=== PATIENT | male | born 1980 | race Hispanic/Latino ===

== ENCOUNTER 2023-08-28 23:46 | Emergency (ER) | payer OTHER ==
[~2023-08-28] VITALS: Ht 165.1 cm; Wt 104.3 kg
[2023-08-28 23:47] VITALS: BP 144/93; PULSE 98; RESP 20
[2023-08-29 00:32] LABS: APPEARANCE,URINE CLEAR (CLEAR); BILIRUBIN,URINE NEGATIVE (NEGATIVE); COLOR,URINE LIGHT-YELLOW (YELLOW); GLUCOSE, URINE (UA) >=1000 mg/dL (NEGATIVE); KETONES,URINE NEGATIVE (NEGATIVE); LEUKOCYTE ESTERASE ,URINE 250 Leu/uL (NEGATIVE); NITRATE,URINE NEGATIVE (NEGATIVE); OCCULT BLOOD,URINE LARGE (NEGATIVE); PH,URINE 5.5 (5.0-8.0); PROTEIN,URINE NEGATIVE (NEGATIVE); UROBILINOGEN,URINE 0.2 mg/dL (0.2-1.0)
[2023-08-29 00:34] LABS: ADD UA MICROSCOPIC YES
[2023-08-29 00:56] LABS: BACTERIA,URINE None Seen /HPF (None Seen); SQUAMOUS EPITHELIAL CELL,UR Rare /HPF (0-2)
[2023-08-29 00:57] LABS: RBC,URINE 26-50 /HPF (0-1)
[2023-08-29 01:08] LABS: BASOPHILS # (AUTO) 0.07 K/uL (0.00-0.20); BASOPHILS % (AUTO) 0.6 % (0.0-5.0); EOSINOPHILS # (AUTO) 0.37 K/uL (0.00-0.70); EOSINOPHILS % (AUTO) 3.2 % (0.0-8.0); HEMATOCRIT 43.8 % (42-54); IMMATURE GRANULOCYTE ABSOLUTE 0.04 K/uL (0-1); LYMPHOCYTES # (AUTO) 2.3 K/uL (1.0-4.8); LYMPHOCYTES % (AUTO) 19.7 % (21.0-51.0); MEAN CORPUSCULAR HEMOGLOBIN 30.1 pg (27.0-33.0); MEAN CORPUSCULAR HGB CONC 32.9 g/dL (32.0-36.0); MEAN CORPUSCULAR VOLUME 91.4 fL (79-99); MONOCYTES # (AUTO) 1.1 K/uL (0.1-1.0); MONOCYTES % (AUTO) 9.2 % (3.0-13.0); NEUTROPHILS # (AUTO) 7.7 K/uL (1.8-7.7); PLATELET COUNT (AUTO) 169 K/uL (130-400); RED BLOOD CELL COUNT(AUTO) 4.79 MIL/uL (4.50-6.20); RED CELL DISTRIBUTION WIDTH 13.7 % (11.0-15.5); WHITE BLOOD COUNT (AUTO) 11.5 K/uL (4.8-10.8)
[2023-08-29 01:10] LABS: CREATININE 0.7 mg/dL (0.5-1.5)
[2023-08-29 01:14] LABS: ALBUMIN 3.6 g/dL (3.5-5.0); BILIRUBIN,TOTAL 0.5 mg/dL (0.2-1.0); TOTAL PROTEIN, SERUM 7.5 g/dL (6.0-8.3)
[2023-08-29] MEDS ORDERED: AZITHROMYCIN 250 MG TABLET PO ONE (02:00)
[2023-08-29] MEDS ORDERED: CEFTRIAXONE 1G VIAL IVPB ONE (02:00)
[2023-08-29] MEDS ORDERED: IBUP-1493 PO (02:52)
[2023-08-29] MEDS ORDERED: LEVO750T68 PO (02:52)
== END 2023-08-29 03:05 | disposition home or self-care (01) ==
LOC: EDH 23:46
DX: N45.3 Epididymo-orchitis (principal); I10 Essential (primary) hypertension; E11.9 Type 2 diabetes mellitus without complications; Z98.890 Other specified postprocedural states
CPT/HCPCS: 99285; 80053; 85025; 87088; 83605; 81001; 36415; 76870; 96365; J0696

== ENCOUNTER 2025-04-12 12:55 | Inpatient (IN) | payer OTHER ==
[~2025-04-12] VITALS: Ht 165.1 cm; Wt 111.1 kg
[~2025-04-12 12:55] MED LIST: IBUP-1493 PO; LEVO750T68 PO
--- NOTE | 2025-04-12 13:26 | ERN ---
ED Note History of Present Illness Stated Complaint: REFERRAL FROM PHYSICIAN FOR PERIRECTAL ABCESS Chief Complaint: Abscess Time Seen by MD: 12:56 Time Seen by Midlevel: 12:57 Dictation: 44-year-old male presents to the emergency department due to reported having a perirectal abscess that began since 2 weeks ago. He states that on day 1 he did have a temperature 102 F but that has since resolved. At this time, he rates his level of discomfort as a 6/10. Currently, he denies having any chills. Patient states that the level of the discomfort has improved after started to drain. However, he states that he is concerned due to having a history of diabetes. At this time, he is not any current or antibiotics. Upon initial evaluation, the patient presents hourly uncomfortable looking. Allergies: Coded Allergies: No Known Allergies (Unverified Allergy, Unknown, 08/28/23) Emergency Care PLAYBACK OPERATOR: None Home Meds Active Scripts Levofloxacin (Levaquin 750Mg Tabs) 750 Mg Tablet, 750 MG PO DAILY, #10 TAB Prov:AUTUMN LEGER MD 08/29/23 Ibuprofen (Motrin/Advil) 800 Mg Tab, 800 MG PO TID, #30 TAB Prov:AUTUMN LEGER MD 08/29/23 Past Medical History Past Medical History: Diabetes-Type II, Hypertension, Other Additional Past Medical Hx: EPIDIDYMITIS Surgical History: Other Surgical History Other: LEFT KNEE PSYCH History: no pertinent psych hx Family History: Negative Social History: Negative, Lives with family RN Note Reviewed/Agreed w/PFSH: Yes Review of System Dictation Skin: Perirectal abscess Initial Vital Sign VS Vital Signs Date Time Temp Pulse Resp B/P (MAP) Pulse Ox O2 Delivery O2 Flow Rate FiO2 04/12/25 13:06 97.3 89 16 142/94 98 Room Air* 0 21 Physical Exam Dictation General: awake, alert, NAD Head/Face: Normocephalic, atraumatic Eyes: PERRL, EOMI ENT: Oral mucosa moist Neck: Trachea midline, supple Cardiovascular: RRR, no edema Respiratory: Symmetrical, non-labored Abdomen: Soft, non-tender, non-distended, no guarding. Skin: Warm, dry, good turgor, small area of induration noted to the left perirectal area at 3:00 a.m. MS/Extremity: Pulses equal, no cyanosis, neurovascular intact, FROM Neuro: COAx4, GCS 15, steady gait, Psych: Normal behavior, mood, and affect normal Results (Laboratory/Radiology) Laboratory/Radiology Laboratory Tests Test 04/12/25 13:28 White Blood Count 10.4 K/uL (4.8-10.8) Red Blood Count 4.72 MIL/uL (4.50-6.20) Hemoglobin 14.0 g/dL (14.0-18.0) Hematocrit 40.6 % (42-54) L Mean Corpuscular Volume 86.0 fL (79-99) Mean Corpuscular Hemoglobin 29.7 pg (27.0-33.0) Mean Corpuscular Hemoglobin Concent 34.5 g/dL (32.0-36.0) Red Cell Distribution Width 12.0 % (11.0-15.5) Platelet Count 223 K/uL (130-400) Mean Platelet Volume 9.9 fL (7.5-10.5) Immature Granulocyte % (Auto) 0.6 % (0-1) Neutrophils (%) (Auto) 52.8 % (40.0-77.0) Lymphocytes (%) (Auto) 35.7 % (21.0-51.0) Monocytes (%) (Auto) 6.6 % (3.0-13.0) Eosinophils (%) (Auto) 3.6 % (0.0-8.0) Basophils (%) (Auto) 0.7 % (0.0-5.0) Neutrophils # (Auto) 5.5 K/uL (1.8-7.7) Lymphocytes # (Auto) 3.7 K/uL (1.0-4.8) Monocytes # (Auto) 0.7 K/uL (0.1-1.0) Eosinophils # (Auto) 0.37 K/uL (0.00-0.70) Basophils # (Auto) 0.07 K/uL (0.00-0.20) Absolute Immature Granulocyte (auto 0.06 K/uL (0-1) Nucleated Red Blood Cells 0.0 % (0.0-0.19) Sodium Level 137 mmol/L (136-145) Potassium Level 3.8 mmol/L (3.5-5.1) Chloride Level 103 mmol/L (101-111) Carbon Dioxide Level 27 mmol/L (21-32) Blood Urea Nitrogen 8 mg/dL (7-18) Creatinine 0.6 mg/dL (0.5-1.3) Glomerular Filtration Rate Calc 121 mL/min (>90) Random Glucose 140 mg/dL (70-105) H Total Calcium 8.3 mg/dL (8.5-10.1) L Total Bilirubin 0.3 mg/dL (0.2-1.0) Aspartate Amino Transf (AST/SGOT) 5 U/L (10-37) L Alanine Aminotransferase (ALT/SGPT) 28 U/L (12-78) Alkaline Phosphatase 90 U/L (50-136) Total Protein 7.3 g/dL (6.0-8.3) Albumin 3.3 g/dL (3.5-5.0) L Labs Reviewed?: Yes CT Scan Comment: CT pelvis with IV contrast concerning for a 3.1 cm perirectal abscess. ED Course ED Course Orders Procedure Category Date Status Time Cbc With Differential LAB 04/12/25 Complete 13:21 Comprehensive LAB 04/12/25 Complete Metabolic Panel 13:21 Blood Cult NATHANIEL 04/12/25 In Process 13:21 Saline Lock Iv CPOE 04/12/25 Transmitted 13:21 Ketorolac PHA 04/12/25 Complete Tromethamine 30mg/Ml 13:30 0.9%Nacl 1000ml (Ns PHA 04/12/25 Complete 1000ml) 13:30 Ct Pelvis W/Contrast CT 04/12/25 Resulted 13:21 Iohexol (Omnipaque) PHA 04/12/25 Complete 13:57 Vancomycin 1g/250ml PHA 04/12/25 Complete Kit (Vancomycin 1g/2 14:30 Current Medications Medications (Trade) Dose Ordered Sig/Daria Route PRN Reason Start Time Stop Time Status Last Admin Dose Admin Iohexol (Omnipaque) 35,000 mg STK-MED ONCE IV 04/12/25 13:57 04/12/25 13:58 DC Ketorolac Tromethamine (toRADol) 30 mg ONCE ONCE IVP 04/12/25 13:30 04/12/25 13:31 DC 04/12/25 13:46 Sodium Chloride 1,000 ml @ 0 mls/hr ONCE ONCE IV 04/12/25 13:30 04/12/25 13:31 DC 04/12/25 13:46 Vancomycin HCl (Vancomycin 1g/ 250ml Kit) 1 gm ONCE ONCE IV 04/12/25 14:30 04/12/25 14:31 DC 04/12/25 14:39 Vital Signs Date Time Temp Pulse Resp B/P (MAP) Pulse Ox O2 Delivery O2 Flow Rate FiO2 04/12/25 14:53 80 18 128/74 98 Room Air* 0 21 04/12/25 13:57 80 18 126/76 98 Room Air* 0 21 04/12/25 13:07 97.3 89 16 142/94 98 04/12/25 13:06 97.3 89 16 142/94 98 Room Air* 0 21 Medical Decision Making MDM MDM: Differential diagnosis: Perirectal abscess, cellulitis. Rationale: Tests considered and ordered secondary to shared decision making include: Previous outside records reviewed: Old ER visits. Risk of complication and/or morbidity or mortality of patient management: None Medications-Per medication reconciliation Need for hospitalization: Patient does not meet criteria for hospitalization. Need for emergency major/minor surgery: No There are no social concerns with this patient. Prescription drug management Prescriptions will include symptomatic care Patient's prior external medical records from other ER visits were reviewed by me as indicated. Prior testing and results from previous visits were reviewed. Prior tests were taken into account with medical decision making and resource utilization, independent historian/historians were used to obtain complete medical history. I independently interpreted the test that were performed, results were reviewed by me and considered findings on radiology if ordered. Medical management and examination interpretation discussions were had by me with other qualified healthcare professionals as indicated for the patient's care. DX & DISP Disposition: Inpatient Decision to Admit Date: Apr 12, 2025 Decision to Admit Time: 15:00 Departure Impression: Primary Impression: Perirectal abscess Condition: Stable Additional Instructions: 04/12/2025 at 3:05 p.m. Discussed and reviewed the diagnostic study results with Christen Merida NP who agrees for hospitalization. Referrals: JOSE MCGHEE MD (PCP) SHAMAR SERRANO Apr 12, 2025 13:26
[2025-04-12 13:36] LABS: BASOPHILS # (AUTO) 0.07 K/uL (0.00-0.20); BASOPHILS % (AUTO) 0.7 % (0.0-5.0); EOSINOPHILS # (AUTO) 0.37 K/uL (0.00-0.70); EOSINOPHILS % (AUTO) 3.6 % (0.0-8.0); HEMATOCRIT 40.6 % (42-54); IMMATURE GRANULOCYTE ABSOLUTE 0.06 K/uL (0-1); LYMPHOCYTES # (AUTO) 3.7 K/uL (1.0-4.8); LYMPHOCYTES % (AUTO) 35.7 % (21.0-51.0); MEAN CORPUSCULAR HEMOGLOBIN 29.7 pg (27.0-33.0); MEAN CORPUSCULAR HGB CONC 34.5 g/dL (32.0-36.0); MONOCYTES # (AUTO) 0.7 K/uL (0.1-1.0); MONOCYTES % (AUTO) 6.6 % (3.0-13.0); NEUTROPHILS # (AUTO) 5.5 K/uL (1.8-7.7); NEUTROPHILS % (AUTO) 52.8 % (40.0-77.0); PLATELET COUNT (AUTO) 223 K/uL (130-400); RED BLOOD CELL COUNT(AUTO) 4.72 MIL/uL (4.50-6.20); WHITE BLOOD COUNT (AUTO) 10.4 K/uL (4.8-10.8)
[2025-04-12 13:43] LABS: CREATININE 0.6 mg/dL (0.5-1.3); POTASSIUM 3.8 mmol/L (3.5-5.1)
[2025-04-12] MEDS: ketOROlac 30MG VIAL (30MG/ML) IVP ONE (13:46)
[2025-04-12] MEDS: 0.9%NACL 1000ML 1,000 ML IV ONE (13:46)
[2025-04-12 13:48] LABS: ALBUMIN 3.3 g/dL (3.5-5.0); BILIRUBIN,TOTAL 0.3 mg/dL (0.2-1.0); TOTAL PROTEIN, SERUM 7.3 g/dL (6.0-8.3)
[2025-04-12] MEDS ORDERED: IOHEXOL 350 MG/ML 100ML INFUS..BTL IV ONE (13:57)
--- NOTE | 2025-04-12 14:24 | HMCIMG ---
Exam Type: CT pelvis with contrast Clinical Information: perirectal abscess Technique: Routine helical scanning at 5mm collimation through the abdomen and pelvis was performed. Sagittal and coronal reformations were also done. Findings: Left posterior perirectal well-circumscribed abscess measuring 3.1 cm. The visualized pelvic bowel loops are unremarkable. No free fluid or fluid collections of the pelvis are seen otherwise. The pelvic viscera are normal in CT appearance. The perirectal fat planes are clear. Bilateral chronic pars interarticularis fractures at L5 with grade 1 anterolisthesis. IMPRESSION: Left posterior perirectal well-circumscribed abscess measuring 3.1 cm.
[2025-04-12] MEDS: VANCOMYCIN KIT 1 GM/250 ML IV.KIT IV ONE (14:39)
--- NOTE | 2025-04-12 15:17 | HP ---
[facility] HISTORY [facility] PHYSICAL Date of Service: Apr 12, 2025 Time of Service: 15:17 HISTORY OF PRESENT ILLNESS: [This is a 44-year-old male with history of diabetes mellitus type 2, hypertension who presented to the emergency department with right buttock pain. Apparently patient noticed a bump last week Wenceslao, associated symptoms even include subjective fever of 101 degree F. patient reported that he took Motrin and the fever went away. Over the week, he would have pain and he noticed some purulent exudate. Today the drain is more pronounced that he decided to come to the emergency department for further evaluation. Patient reported that abscesses located on the left side. In the emergency department CT pelvis was done which showed 2.1 cm of abscess. He received IV antibiotics with vancomycin and pain medication Toradol. He was referred to the hospitalist for further evaluation and management] REVIEW OF SYSTEMS CONSTITUTIONAL: Subjective fever at home, no chills, or night sweats. No unintentional weight loss reported. NEUROLOGICAL: Denies headache, amaurosis fugax, motor weakness, sensory deficit, vertigo/spinning sensation, gait abnormalities, or tremors. ENT: No hearing loss, otalgia, otorrhea, rhinitis, rhinorrhea, hoarseness, or sore throat. CARDIOVASCULAR: Denies any exertional angina, dyspnea on exertion, orthopnea, paroxysmal nocturnal dyspnea, palpitations, life-threatening arrhythmias, claudication. PULMONARY: Denies any shortness of breath, cough, phlegm/sputum, hemoptysis, pleuritic chest pain. SLEEP: Denies morning headaches, daytime somnolence or napping. Denies difficulty falling asleep, staying asleep, waking from sleep. Denies knowledge of snoring. GASTROINTESTINAL: Denies any type of dysphagia to either liquids or solids. Denies nausea, vomiting, pyrosis, early satiety, abdominal pain, diarrhea, constipation, or changes in stool consistency or caliber. Denies coffee-ground emesis, hematemesis, hematochezia, or melanotic stools. GENITOURINARY: Denies frequency, urgency, nocturia, hematuria or incontinence (Storage/Irritative symptoms.) Low urinary stream, straining to void, urinary intermittency or hesitancy, splitting of the voiding stream, terminal dribbling. ENDOCRINOLOGIC: Denies polyuria, polydipsia, polyphagia or heat/cold intolerances. HEMATOLOGIC: Denies thrombophilia/previous clots, or coagulopathy/bleeding disorders. ONCOLOGIC: Denies personal history of malignancy. DERMATOLOGIC: Denies rashes or pruritus. PSYCHIATRIC: Denies any suicidal or homicidal ideation. Denies hallucinations. PAST MEDICAL HISTORY: [ DIABETES MELLITUS, hypertension PAST SURGICAL HISTORY: [ Meniscus repair] PAST SOCIAL HISTORY: [ ] FAMILY HISTORY: [ ] Coded Allergies: No Known Allergies (Unverified Allergy, Unknown, 08/28/23) PHYSICAL EXAM GENERAL APPEARANCE: The patient is awake, alert, and oriented, in no acute cardiopulmonary distress. NEUROLOGICAL: Cranial nerves II-XII grossly intact. Motor is 5/5 in bilateral upper and lower extremities proximal to distal. No sensory deficits. HEENT: Face is symmetric. Pupils are equal and reactive. Extraocular movements are intact. NECK: Supple. No JVD. No thyromegaly. No submental, submandibular, pre- /postauricular, occipital or supraclavicular lymphadenopathy. CHEST: Normal chest expansion. No Telemetry. LUNGS: Absence of any rales, rhonchi or any wheezing. CARDIOVASCULAR: Regular. S1 and S2 normal. No appreciable rubs, murmurs or gallops. ABDOMEN: Soft, nontender, and nondistended. There is no rebound, voluntary guarding, or rigidity. : Deferred. No Fenton. EXTREMITIES: Non-edematous and not cyanotic. No clubbing. Good capillary refill. SKIN: No skin breakdown. Vital Sign (Last 24 Hours) 04/12/25 04/12/25 13:07 14:53 Temp 97.3 Pulse 80 Resp 18 B/P (MAP) 128/74 Pulse Ox 98 O2 Delivery Room Air* O2 Flow Rate 0 FiO2 21 LABS: Laboratory: Test 04/12/25 13:28 Range/Units White Blood Count 10.4 4.8-10.8 K/uL Red Blood Count 4.72 4.50-6.20 MIL/uL Hemoglobin 14.0 14.0-18.0 g/dL Hematocrit 40.6 L 42-54 % Mean Corpuscular Volume 86.0 79-99 fL Mean Corpuscular Hemoglobin 29.7 27.0-33.0 pg Mean Corpuscular Hemoglobin Concent 34.5 32.0-36.0 g/dL Red Cell Distribution Width 12.0 11.0-15.5 % Platelet Count 223 130-400 K/uL Mean Platelet Volume 9.9 7.5-10.5 fL Immature Granulocyte % (Auto) 0.6 0-1 % Neutrophils (%) (Auto) 52.8 40.0-77.0 % Lymphocytes (%) (Auto) 35.7 21.0-51.0 % Monocytes (%) (Auto) 6.6 3.0-13.0 % Eosinophils (%) (Auto) 3.6 0.0-8.0 % Basophils (%) (Auto) 0.7 0.0-5.0 % Neutrophils # (Auto) 5.5 1.8-7.7 K/uL Lymphocytes # (Auto) 3.7 1.0-4.8 K/uL Monocytes # (Auto) 0.7 0.1-1.0 K/uL Eosinophils # (Auto) 0.37 0.00-0.70 K/uL Basophils # (Auto) 0.07 0.00-0.20 K/uL Absolute Immature Granulocyte (auto 0.06 0-1 K/uL Nucleated Red Blood Cells 0.0 0.0-0.19 % Sodium Level 137 136-145 mmol/L Potassium Level 3.8 3.5-5.1 mmol/L Chloride Level 103 101-111 mmol/L Carbon Dioxide Level 27 21-32 mmol/L Blood Urea Nitrogen 8 7-18 mg/dL Creatinine 0.6 0.5-1.3 mg/dL Glomerular Filtration Rate Calc 121 >90 mL/min Random Glucose 140 H 70-105 mg/dL Total Calcium 8.3 L 8.5-10.1 mg/dL Total Bilirubin 0.3 0.2-1.0 mg/dL Aspartate Amino Transf (AST/SGOT) 5 L 10-37 U/L Alanine Aminotransferase (ALT/SGPT) 28 12-78 U/L Alkaline Phosphatase 90 50-136 U/L Total Protein 7.3 6.0-8.3 g/dL Albumin 3.3 L 3.5-5.0 g/dL Current Medications Medications (Trade) Dose Ordered Sig/Daria Route PRN Reason Start Time Stop Time Status Last Admin Dose Admin Ceftriaxone Sodium (Rocephin 2gm Inj) 2 gm Q24H IVPB 04/12/25 15:30 04/22/25 15:29 UNV Dextrose (D50w) 50 ml AD PRN IV HYPOGLYCEMIA PROTOCOL 04/12/25 15:30 05/12/25 15:29 UNV Glucagon (Glucagon 1mg Kit) 1 mg AD PRN IM HYPOGLYCEMIA PROTOCOL 04/12/25 15:30 05/12/25 15:29 UNV Insulin Human Regular (humuLIN R 100 UNIT/ML 3ML) INSULIN SLIDING SCAL... ACHS SQ 04/12/25 16:30 05/12/25 16:29 UNV Magnesium Sulfate 50 ml @ 0 mls/hr PROTOCOL PRN IV MAGNESIUM PROTOCOL 04/12/25 15:30 05/12/25 15:29 UNV Metronidazole/ Sodium Chloride 100 ml @ 100 mls/hr Q8H6 IVPB 04/12/25 22:00 04/22/25 21:59 UNV Potassium Chloride 100 ml @ 100 mls/hr AD PRN IV POTASSIUM PROTOCOL 04/12/25 15:30 05/12/25 15:29 UNV Potassium Chloride (K-Dur/Klor-Con 20meq) 20 meq AD PRN PO POTASSIUM PROTOCOL 04/12/25 15:30 05/12/25 15:29 UNV Potassium Chloride (KCl 10% Elixir 20meq/15ml) 20 meq AD PRN PO POTASSIUM PROTOCOL 04/12/25 15:30 05/12/25 15:29 UNV DIAGNOSTICS / RADIOLOGY: [place] [address] IMAGING REPORT Signed PATIENT: TESS VELASQUEZ MR#: [id number] : 1980 SEX: M AGE: 44 LOCATION: [facility] ORDER [id number] STATUS: REG ER REPORT#: [id number] SERVICE 1321 REASON: perirectal abscess ORDERING PHYSICIAN: SHAMAR SERRANO PROCEDURE: PELVIS W - CT PELVIS W/CONTRAST Exam Type: CT pelvis with contrast Clinical Information: perirectal abscess Technique: Routine helical scanning at 5mm collimation through the abdomen and pelvis was performed. Sagittal and coronal reformations were also done. Findings: Left posterior perirectal well-circumscribed abscess measuring 3.1 cm. The visualized pelvic bowel loops are unremarkable. No free fluid or fluid collections of the pelvis are seen otherwise. The pelvic viscera are normal in CT appearance. The perirectal fat planes are clear. Bilateral chronic pars interarticularis fractures at L5 with grade 1 anterolisthesis. IMPRESSION: Left posterior perirectal well-circumscribed abscess measuring 3.1 cm. DICTATED BY: JUANI LEE MD DATE: 04/12/251419 ELECTRONICALLY SIGNED BY: JUANI LEE MD DATE: 04/12/251423 ] ASSESSMENT: [Left perirectal abscess, POA Hyperglycemia with diabetes mellitus, POA, A1c 10.7% Diabetes mellitus type 2, POA Hypertension, POA ] PLAN: [ Admit to medical floor Patient will be started with IV antibiotic with metronidazole and ceftriaxone Patient will be on diabetic diet We will continue with pain management Wound cultures requested We will request general surgeon to evaluate and treat We will request Infectious Disease for antibiotic management A.c. and HS glucometer and insulin sliding scale Repeat labs tomorrow Patient is full code Case discussed with Dr. Cohn, above plan was formulated ADVANCED CARE PLANNING 1. Which of the following were discussed? Hospice Care - Yes / No Therapeutic options - Yes / No Advance Directives - Yes / No Other discussions - 2. Discussed with who? Patient 3. Voluntary nature of this service was explained to the patient? Yes / No 4. Amount of time spent - __20 mins 5. Reviewed by Physician? (if this service was performed by NPP) Yes / No ] ATTESTATION BY PHYSICIAN I have seen and examined the patient. I reviewed the documentation, medical de cision making, and treatment plan as noted by the mid-level provider above. I agree with the findings and plan of care. NIK COHN MD, [facility] Apr 12, 2025 15:17
[2025-04-12] MEDS ORDERED: ATOR20TA65 PO (15:24)
[2025-04-12] MEDS ORDERED: METF-446 PO (15:24)
[2025-04-12] MEDS ORDERED: VALS1TAB77 PO (15:24)
[2025-04-12] MEDS ORDERED: TIRZ7.5P SQ (15:26)
[2025-04-12] MEDS ORDERED: DEXTROSE 50%-WATER 50 ML DISP.SYRIN IV PRN (15:30)
[2025-04-12] MEDS ORDERED: MAGNESIUM 2GM PREMIX 50ML 50 ML IV PRN (15:30)
[2025-04-12] MEDS ORDERED: PoTASSium chl 10% ELIXIR 20MEQ 20 MEQ/15 ML UDCUP PO PRN (15:30)
[2025-04-12] MEDS ORDERED: PoTASSium chloRIDE 20MEQ ER 20 MEQ ERTAB PO PRN (15:30)
[2025-04-12] MEDS ORDERED: GLUCAGON 1MG KIT 1 MG ML IM PRN (15:30)
[2025-04-12] MEDS ORDERED: PoTASSium chloRIDE 20MEQ/100ML 100 ML IV PRN (15:30)
[2025-04-12 15:41] LABS: HEMOGLOBIN A1C 10.7 % (4.0-6.0)
--- NOTE | 2025-04-12 15:46 | NUR ---
LEFT PERINEAL ABSCESS WITHOUT ANY DRAINAGE, PATIENT STATES HE WELL NOTIFIY US IF HE HAS ANY DRAINAGE. SWAB STILL PENDING.
--- NOTE | 2025-04-12 16:22 | NUR ---
PAGED DR CAO FOR CONSULT.
--- NOTE | 2025-04-12 16:32 | NUR ---
DR CAO CALLED STATED THIS PATIENT CAN FOLLOW UP IN HIS OFFICE IN 1WK, RECOMMENDS DISCHARGE ON CIPRO AND FLAGYL.
--- NOTE | 2025-04-12 16:36 | NUR ---
Jourdan GUSTAFSON CAPTION WRITER CALLED AND STATED TO HOLD OFF ON IFECTIONS DISEASE CONSULT, ALSO SHE WILL CALL HER MD FOR RECOMMENDATIONS FOR POSSIBLE DISCHARGE.
[2025-04-12] MEDS: cefTRIAXone 2GM VIAL IVPB SCH (16:41)
[2025-04-12] MEDS: INSULIN humuLIN R 100 UNIT/ML 3ML SQ SCH (17:51)
[2025-04-12] MEDS: metRONIDazole 500MG/100ML BAG 100 ML IVPB SCH (17:52)
--- NOTE | 2025-04-12 18:00 | NUR ---
DR HOWARD CONSULTED.
[2025-04-12] MEDS ORDERED: metRONIDazole 500MG/100ML BAG 100 ML IVPB SCH (22:00)
--- NOTE | 2025-04-12 22:11 | NUR ---
ASBSCESS SWAB NOT DONE, COULD NOT FIND ANYTHING TO SWAB, IT APPEARS 'ON & OFF' ACCORDING TO THE PATIENT
[2025-04-12 22:30] VITALS: BP 142/79; PULSE 69; RESP 20; TEMP 97.8
[2025-04-12 23:30] VITALS: O2SAT 94
[2025-04-13 04:00] VITALS: BP 143/77; PULSE 70; RESP 20; TEMP 98
[2025-04-13 05:46] LABS: BASOPHILS # (AUTO) 0.09 K/uL (0.00-0.20); EOSINOPHILS # (AUTO) 0.49 K/uL (0.00-0.70); EOSINOPHILS % (AUTO) 5.7 % (0.0-8.0); HEMATOCRIT 39.3 % (42-54); IMMATURE GRANULOCYTE ABSOLUTE 0.05 K/uL (0-1); LYMPHOCYTES # (AUTO) 3.7 K/uL (1.0-4.8); LYMPHOCYTES % (AUTO) 42.6 % (21.0-51.0); MEAN CORPUSCULAR HEMOGLOBIN 29.2 pg (27.0-33.0); MEAN CORPUSCULAR HGB CONC 33.8 g/dL (32.0-36.0); MEAN CORPUSCULAR VOLUME 86.2 fL (79-99); MONOCYTES # (AUTO) 0.6 K/uL (0.1-1.0); MONOCYTES % (AUTO) 7.4 % (3.0-13.0); NEUTROPHILS # (AUTO) 3.7 K/uL (1.8-7.7); NEUTROPHILS % (AUTO) 42.7 % (40.0-77.0); PLATELET COUNT (AUTO) 223 K/uL (130-400); RED BLOOD CELL COUNT(AUTO) 4.56 MIL/uL (4.50-6.20); RED CELL DISTRIBUTION WIDTH 11.9 % (11.0-15.5); WHITE BLOOD COUNT (AUTO) 8.6 K/uL (4.8-10.8)
[2025-04-13 06:01] LABS: ALBUMIN 2.9 g/dL (3.5-5.0); BILIRUBIN,TOTAL 0.4 mg/dL (0.2-1.0); CREATININE 0.7 mg/dL (0.5-1.3); POTASSIUM 3.7 mmol/L (3.5-5.1); TOTAL PROTEIN, SERUM 6.5 g/dL (6.0-8.3)
[2025-04-13 08:00] VITALS: BP 132/61; PULSE 83; RESP 19; TEMP 97.6; O2SAT 95
[2025-04-13] MEDS ORDERED: acetaMINOPHEN 325 MG TAB PO PRN (09:30)
--- NOTE | 2025-04-13 10:55 | PN ---
[facility] PROGRESS NOTE Date of Service: Apr 13, 2025 Time of Service: 10:54 SUBJECTIVE: The patient is a 44-year-old male with a history of type 2 diabetes mellitus and hypertension who presented to the emergency department on April 12 with complaints of right buttock pain. He noticed a bump seven days ago and experienced a fever of 101F. Over the course of a week, he observed worsening pain and some purulent discharge. The pain became so severe that he sought emergency care. A CT scan revealed a left posterior perirectal abscess measuring 3.1 cm. Laboratory results indicated a uncontrolled hyperglycemia with hemoglobin A1c of 10.7, whole blood glucose of 214, and an albumin level of 2.9. The patient was admitted for management of the perirectal abscess. 04/13/25: Upon bedside examination, the patient appeared hemodynamically stable and denied having any fever, chills, abdominal pain, dizziness, or hematochezia. His glucose levels improved to 159 from 214. Inflammatory markers are elevated, ESR 35, and CRP 8.6. Other remarkable labs, albumin 2.9, corrected calcium 9.2. Blood culture showed no growth in 24 hours. He was started on cefepime, vancomycin, and metronidazole for broad-spectrum coverage following recommendations from the Infectious Disease team. The general surgeon plans to perform an incision and drainage procedure tomorrow morning. Further assessment and plan discussed below. REVIEW OF SYSTEMS CONSTITUTIONAL: Subjective fever at home, no chills, or night sweats. No unintentional weight loss reported. NEUROLOGICAL: Denies headache, amaurosis fugax, motor weakness, sensory deficit, vertigo/spinning sensation, gait abnormalities, or tremors. ENT: No hearing loss, otalgia, otorrhea, rhinitis, rhinorrhea, hoarseness, or sore throat. CARDIOVASCULAR: Denies any exertional angina, dyspnea on exertion, orthopnea, paroxysmal nocturnal dyspnea, palpitations, life-threatening arrhythmias, claudication. PULMONARY: Denies any shortness of breath, cough, phlegm/sputum, hemoptysis, pleuritic chest pain. SLEEP: Denies morning headaches, daytime somnolence or napping. Denies difficulty falling asleep, staying asleep, waking from sleep. Denies knowledge of snoring. GASTROINTESTINAL: Denies any type of dysphagia to either liquids or solids. Denies nausea, vomiting, pyrosis, early satiety, abdominal pain, diarrhea, constipation, or changes in stool consistency or caliber. Denies coffee-ground emesis, hematemesis, hematochezia, or melanotic stools. GENITOURINARY: Right buttock swelling, Denies frequency, urgency, nocturia, hematuria or incontinence (Storage/Irritative symptoms.) Low urinary stream, straining to void, urinary intermittency or hesitancy, splitting of the voiding stream, terminal dribbling. ENDOCRINOLOGIC: Denies polyuria, polydipsia, polyphagia or heat/cold intolerances. HEMATOLOGIC: Denies thrombophilia/previous clots, or coagulopathy/bleeding disorders. ONCOLOGIC: Denies personal history of malignancy. DERMATOLOGIC: Denies rashes or pruritus. PSYCHIATRIC: Denies any suicidal or homicidal ideation. Denies hallucinations. PHYSICAL EXAM GENERAL APPEARANCE: The patient is awake, alert, and oriented, in no acute cardiopulmonary distress. NEUROLOGICAL: Cranial nerves II-XII grossly intact. Motor is 5/5 in bilateral upper and lower extremities proximal to distal. No sensory deficits. HEENT: Face is symmetric. Pupils are equal and reactive. Extraocular movements are intact. NECK: Supple. No JVD. No thyromegaly. No submental, submandibular, pre- /postauricular, occipital or supraclavicular lymphadenopathy. CHEST: Normal chest expansion. No Telemetry. LUNGS: Absence of any rales, rhonchi or any wheezing. CARDIOVASCULAR: Regular. S1 and S2 normal. No appreciable rubs, murmurs or gallops. ABDOMEN: Soft, nontender, and nondistended. There is no rebound, voluntary guarding, or rigidity. : Deferred. No Fenton. EXTREMITIES: Non-edematous and not cyanotic. No clubbing. Good capillary refill. SKIN: No skin breakdown. Vital Signs (last 8hr) Date Time Temp Pulse Resp B/P (MAP) Pulse Ox O2 Delivery O2 Flow Rate FiO2 04/13/25 08:00 97.5 83 19 132/61 93 Room Air 04/13/25 04:00 98.1 70 20 143/77 96 Room Air LABS: Laboratory: Test 04/13/25 05:45 04/13/25 05:14 04/12/25 13:28 Range/Units Whole Blood Glucose 163 H 70-110 MG/DL White Blood Count 8.6 4.8-10.8 K/uL Red Blood Count 4.56 4.50-6.20 MIL/uL Hemoglobin 13.3 L 14.0-18.0 g/dL Hematocrit 39.3 L 42-54 % Mean Corpuscular Volume 86.2 79-99 fL Mean Corpuscular Hemoglobin 29.2 27.0-33.0 pg Mean Corpuscular Hemoglobin Concent 33.8 32.0-36.0 g/dL Red Cell Distribution Width 11.9 11.0-15.5 % Platelet Count 223 130-400 K/uL Mean Platelet Volume 10.3 7.5-10.5 fL Immature Granulocyte % (Auto) 0.6 0-1 % Neutrophils (%) (Auto) 42.7 40.0-77.0 % Lymphocytes (%) (Auto) 42.6 21.0-51.0 % Monocytes (%) (Auto) 7.4 3.0-13.0 % Eosinophils (%) (Auto) 5.7 0.0-8.0 % Basophils (%) (Auto) 1.0 0.0-5.0 % Neutrophils # (Auto) 3.7 1.8-7.7 K/uL Lymphocytes # (Auto) 3.7 1.0-4.8 K/uL Monocytes # (Auto) 0.6 0.1-1.0 K/uL Eosinophils # (Auto) 0.49 0.00-0.70 K/uL Basophils # (Auto) 0.09 0.00-0.20 K/uL Absolute Immature Granulocyte (auto 0.05 0-1 K/uL Nucleated Red Blood Cells 0.0 0.0-0.19 % Sodium Level 141 136-145 mmol/L Potassium Level 3.7 3.5-5.1 mmol/L Chloride Level 105 101-111 mmol/L Carbon Dioxide Level 28 21-32 mmol/L Blood Urea Nitrogen 10 7-18 mg/dL Creatinine 0.7 0.5-1.3 mg/dL Glomerular Filtration Rate Calc 115 >90 mL/min Random Glucose 159 H 70-105 mg/dL Total Calcium 8.3 L 8.5-10.1 mg/dL Total Bilirubin 0.4 # 0.2-1.0 mg/dL Aspartate Amino Transf (AST/SGOT) 4 L 10-37 U/L Alanine Aminotransferase (ALT/SGPT) 25 12-78 U/L Alkaline Phosphatase 80 50-136 U/L Total Protein 6.5 6.0-8.3 g/dL Albumin 2.9 L 3.5-5.0 g/dL Erythrocyte Sedimentation Rate 35 H 0-15 MM/HR Hemoglobin A1c 10.7 H 4.0-6.0 % Estimated Average Glucose (eAG) 260 H 70-126 mg/dL C-Reactive Protein, Quantitative 8.60 H 0.5-3.0 mg/L Current Medications Medications (Trade) Dose Ordered Sig/Daria Route PRN Reason Start Time Stop Time Status Last Admin Dose Admin Acetaminophen (TYLenol 325MG TAB) 650 mg Q4H PRN PO MILD PAIN (1-3) 04/13/25 09:30 05/13/25 09:29 Acetaminophen (TYLenol 325MG TAB) 650 mg Q6H PRN PO TEMPERATURE GREATER THAN 101.5 04/13/25 09:30 05/13/25 09:29 Atorvastatin Calcium (LIPItor 20MG) 20 mg DAILY PO 04/14/25 09:00 05/14/25 08:59 Ceftriaxone Sodium (Rocephin 2gm Inj) 2 gm Q24H IVPB 04/12/25 15:30 04/22/25 15:29 04/12/25 16:41 2 GM Dextrose (D50w) 50 ml AD PRN IV HYPOGLYCEMIA PROTOCOL 04/12/25 15:30 05/12/25 15:29 Glucagon (Glucagon 1mg Kit) 1 mg AD PRN IM HYPOGLYCEMIA PROTOCOL 04/12/25 15:30 05/12/25 15:29 Hydrochlorothiazide (hydroCHLOROthiazide 25MG) 25 mg DAILY PO 04/14/25 09:00 05/14/25 08:59 Hydromorphone HCl (DiLAUDid 1MG INJ) 0.5 mg Q4H PRN IV SEVERE PAIN (7-10) 04/13/25 09:30 04/18/25 09:29 Insulin Human Regular (humuLIN R 100 UNIT/ML 3ML) INSULIN SLIDING SCAL... ACHS SQ 04/12/25 16:30 05/12/25 16:29 04/12/25 19:55 2 UNIT Losartan Potassium (CozAAR 100MG TAB) 100 mg DAILY PO 04/14/25 09:00 05/14/25 08:59 Magnesium Sulfate 50 ml @ 0 mls/hr PROTOCOL PRN IV MAGNESIUM PROTOCOL 04/12/25 15:30 05/12/25 15:29 Metronidazole/ Sodium Chloride 100 ml @ 100 mls/hr Q8H6 IVPB 04/12/25 18:00 04/22/25 17:59 04/13/25 07:54 100 MLS/HR Metronidazole/ Sodium Chloride 100 ml @ 100 mls/hr Q8H6 IVPB 04/12/25 22:00 04/12/25 17:32 DC Miscellaneous Medication (Valsartan/ Hydrochlorothiazide (Valsartan-Hctz 160-25 mg Tab)) 1 tab DAILY PO 04/14/25 09:00 04/13/25 09:23 DC Morphine Sulfate (morPHINE 2MG SYG) 2 mg Q4H PRN IV MODERATE PAIN (4-6) 04/13/25 09:30 04/20/25 09:29 Potassium Chloride 100 ml @ 100 mls/hr AD PRN IV POTASSIUM PROTOCOL 04/12/25 15:30 05/12/25 15:29 Potassium Chloride (K-Dur/Klor-Con 20meq) 20 meq AD PRN PO POTASSIUM PROTOCOL 04/12/25 15:30 05/12/25 15:29 Potassium Chloride (KCl 10% Elixir 20meq/15ml) 20 meq AD PRN PO POTASSIUM PROTOCOL 04/12/25 15:30 05/12/25 15:29 DIAGNOSTICS / RADIOLOGY: [place] [address] IMAGING REPORT Signed PATIENT: TESS VELASQUEZ MR#: [id number] : 1980 SEX: M AGE: 44 LOCATION: [facility] ORDER 1323 STATUS: REG REPORT#: [id number] SERVICE 1321 REASON: perirectal abscess ORDERING PHYSICIAN: SHAMAR SERRANO PROCEDURE: PELVIS W - CT PELVIS W/CONTRAST Exam Type: CT pelvis with contrast Clinical Information: perirectal abscess Technique: Routine helical scanning at 5mm collimation through the abdomen and pelvis was performed. Sagittal and coronal reformations were also done. Findings: Left posterior perirectal well-circumscribed abscess measuring 3.1 cm. The visualized pelvic bowel loops are unremarkable. No free fluid or fluid collections of the pelvis are seen otherwise. The pelvic viscera are normal in CT appearance. The perirectal fat planes are clear. Bilateral chronic pars interarticularis fractures at L5 with grade 1 anterolisthesis. IMPRESSION: Left posterior perirectal well-circumscribed abscess measuring 3.1 cm. DICTATED BY: JUANI LEE MD DATE: 04/12/251419 ELECTRONICALLY SIGNED BY: JUANI LEE MD DATE: 04/12/251423 RUN DATE: 04/13/25 [facility] RUN TIME: [id number] [address], [place] [address] Department of [employer] CLIA # [id number] Body Worker: Nick Silva DO Specimen Report PATIENT: TESS VELASQUEZ ACCT: [id number] LOC: [facility] U: [id number] AGE/SX: 44/M ROOM: [facility] RE04/12/[address]: NIK LAWSON MD : 1980 BED: 1 DIS: STATUS: ADM IN TLOC: SPEC: [id number] FELIPE: 04/12/25-134 STATUS: RES REQ: [id number] RECD: 04/12/25-[address]: SHAMAR SERRANO SOURCE: BLOOD ENTR: 04/12/25-[address]: [facility]: JOSE MCGHEE MD ORDERED: BLOOD CULTURE COMMENTS: What is the Source? BLOOD Procedure Result Laal Date-Time BLOOD CULT Preliminary 04/13/25-1409 NO GROWTH AFTER 24 HOURS ASSESSMENT: Left perirectal abscess measuring 3.1 cm, POA Elevated inflammatory markers, ESR, CRP POA Hyperglycemia with uncontrolled type 2 diabetes mellitus A1c 10.7%, POA Hypertension, POA Hypoalbuminemia, POA Hyperlipidemia, POA PLAN: The patient remains admitted on the medical surgical floor. Left perirectal abscess measuring 3.1 cm, POA Elevated inflammatory markers, ESR, CRP POA * Incision and drainage is scheduled by General surgeon tomorrow. Wound cultures requested post drainage. * Continue with broad-spectrum IV antibiotics cefepime, vancomycin, and metronidazole. * Blood Culture showed no growth in 24 hours. Follow up with the cultures. * Follow Infectious Disease recommendations. * Monitor for fever. Hyperglycemia with uncontrolled type 2 diabetes mellitus A1c 10.7%, POA * Start with insulin Lantus 10 units nightly for basal coverage * A.c. and HS glucometer and insulin sliding scale * Continue with diabetic diet Hypertension, POA * Continue with losartan 100 mg daily. * Continue with [id number] mg daily. Hyperlipidemia, POA * Continue with atorvastatin 20 mg p.o. daily. DVT prophylaxis: SCD's today due scheduled I and D tomorrow. GI prophylaxis: Famotidine 20 mg p.o. b.i.d. P.r.n. medications * Hydromorphone 0.5 mg q.4 for severe pain (7-10) * Morphine 2 mg q.4 for moderate pain (4-6) * Tylenol 650 mg q.4 for mild pain (1-4) * Tylenol 650 mg for fever A.m. labs, CBC, BMP Assessment and plan was discussed in detail and the patient. The patient verbalizes understanding. Further orders per hospitalization course. ATTESTATION BY PHYSICIAN I have seen and examined the patient. I reviewed the documentation, medical decision making, and treatment plan as noted by the resident provider above. I agree with the findings and plan of care. Hamilton Guerra MD, MANALI MD Apr 13, 2025 10:54
--- NOTE | 2025-04-13 11:20 | NUR ---
DCP: HOME Pt currently lives with Donna John [phone]. Pt does not have any insecurities with food, fci, and/or utilities. Pt does not have any DME, home health, or provider services. Pt is able to complete ALDs independently. PCP is Lucio Farah and uses [facility] for any RX needs. At MD pt will go back home and family will assist with transportation. Addendum: 04/13/25 at 1123 by ENRIKE SPRING SS Amended: Links added.
[2025-04-13 11:55] VITALS: BP 143/88; PULSE 81; RESP 18; TEMP 97.1
--- NOTE | 2025-04-13 12:58 | CONS ---
GENERAL SURGERY CONSULTATION NOTE Date/Time Patient Seen: [ April 13, 2025] Requesting Physician: [Hospitalist ] Reason for Consultation: [Perianal/perirectal abscess ] History of Present Illness: [ Patient has been having perianal pain for about 10 days. Patient indicates acute onset that progressively got worse. Associated with the pain was some subjective fevers. Patient did have some purulent drainage that he noticed on his that he use after his bowel movements. Pain got significant enough patient came in the emergency room. A CT scan was obtained. I personally reviewed the CT scan. Patient appears to have a left perianal abscess. The abscess appears to extend up towards the perirectal space. Patient denies ever having something like this before. Patient has a history of diabetes and hypertension. Prior to onset of symptoms patient is tolerating a regular diet. Patient denies any melena, hematochezia, hematuria.] Past Medical History: [Diabetes and hypertension ] Past Surgical History: [ Patient denies] Family History: [Noncontributory ] Social History: [ Patient denies any illicit drug use] Habits: [Never] smoker. [Denies] alcohol consumption. [Denies] illicit drug use Current Medications Medications (Trade) Dose Ordered Sig/Daria Route Start Time Stop Time Status Last Admin Dose Admin Atorvastatin Calcium (LIPItor 20MG) 20 mg DAILY PO 04/14/25 09:00 05/14/25 08:59 Ceftriaxone Sodium (Rocephin 2gm Inj) 2 gm Q24H IVPB 04/12/25 15:30 04/22/25 15:29 04/12/25 16:41 2 GM Hydrochlorothiazide (hydroCHLOROthiazide 25MG) 25 mg DAILY PO 04/14/25 09:00 05/14/25 08:59 Insulin Glargine (LANtus 100 UNITS/ML 10 ML VIAL) 10 units HS SQ 04/13/25 21:00 05/13/25 20:59 Insulin Human Regular (humuLIN R 100 UNIT/ML 3ML) INSULIN SLIDING SCAL... ACHS SQ 04/12/25 16:30 05/12/25 16:29 04/12/25 19:55 2 UNIT Losartan Potassium (CozAAR 100MG TAB) 100 mg DAILY PO 04/14/25 09:00 05/14/25 08:59 Metronidazole/ Sodium Chloride 100 ml @ 100 mls/hr Q8H6 IVPB 04/12/25 18:00 04/22/25 17:59 04/13/25 07:54 100 MLS/HR Metronidazole/ Sodium Chloride 100 ml @ 100 mls/hr Q8H6 IVPB 04/12/25 22:00 04/12/25 17:32 DC Miscellaneous Medication (Valsartan/ Hydrochlorothiazide (Valsartan-Hctz 160-25 mg Tab)) 1 tab DAILY PO 04/14/25 09:00 04/13/25 09:23 DC Review of Systems: Fourteen point review of systems negative except was mentioned in history of present illness Physical Examination: PHYSICAL EXAM EYES: Sclera white HENT: Oral nasal mucosa pink and moist NECK: Supple, . LUNGS: Unlabored CARDIOVASCULAR: Regular rate and rhythm ABDOMEN: Soft, nontender, nondistended CENTRAL NERVOUS SYSTEM: Awake, alert, oriented x3 SKIN: No rashes, no swelling. LYMPHATICS: No peripheral lymphadenopathy MUSCULOSKELETAL: Motor and sensory function grossly intact EXTREMITIES: No cyanosis or clubbing Perianal exam exhibits an abscess in the left perianal space Vital Signs (last 8hr) Date Time Temp Pulse Resp B/P (MAP) Pulse Ox O2 Delivery O2 Flow Rate FiO2 04/13/25 11:55 97.2 81 18 143/88 95 Room Air 04/13/25 08:00 97.5 83 19 132/61 93 Room Air Laboratory: [ ] Hematology Labs: Test 04/13/25 05:14 04/12/25 13:28 Range/Units White Blood Count 8.6 4.8-10.8 K/uL Red Blood Count 4.56 4.50-6.20 MIL/uL Hemoglobin 13.3 L 14.0-18.0 g/dL Hematocrit 39.3 L 42-54 % Mean Corpuscular Volume 86.2 79-99 fL Mean Corpuscular Hemoglobin 29.2 27.0-33.0 pg Mean Corpuscular Hemoglobin Concent 33.8 32.0-36.0 g/dL Red Cell Distribution Width 11.9 11.0-15.5 % Platelet Count 223 130-400 K/uL Mean Platelet Volume 10.3 7.5-10.5 fL Immature Granulocyte % (Auto) 0.6 0-1 % Neutrophils (%) (Auto) 42.7 40.0-77.0 % Lymphocytes (%) (Auto) 42.6 21.0-51.0 % Monocytes (%) (Auto) 7.4 3.0-13.0 % Eosinophils (%) (Auto) 5.7 0.0-8.0 % Basophils (%) (Auto) 1.0 0.0-5.0 % Neutrophils # (Auto) 3.7 1.8-7.7 K/uL Lymphocytes # (Auto) 3.7 1.0-4.8 K/uL Monocytes # (Auto) 0.6 0.1-1.0 K/uL Eosinophils # (Auto) 0.49 0.00-0.70 K/uL Basophils # (Auto) 0.09 0.00-0.20 K/uL Absolute Immature Granulocyte (auto 0.05 0-1 K/uL Nucleated Red Blood Cells 0.0 0.0-0.19 % Erythrocyte Sedimentation Rate 35 H 0-15 MM/HR Chemistry Labs: Test 04/13/25 11:31 04/13/25 05:14 04/12/25 13:28 Range/Units Whole Blood Glucose 168 H 70-110 MG/DL Sodium Level 141 136-145 mmol/L Potassium Level 3.7 3.5-5.1 mmol/L Chloride Level 105 101-111 mmol/L Carbon Dioxide Level 28 21-32 mmol/L Blood Urea Nitrogen 10 7-18 mg/dL Creatinine 0.7 0.5-1.3 mg/dL Glomerular Filtration Rate Calc 115 >90 mL/min Random Glucose 159 H 70-105 mg/dL Total Calcium 8.3 L 8.5-10.1 mg/dL Total Bilirubin 0.4 # 0.2-1.0 mg/dL Aspartate Amino Transf (AST/SGOT) 4 L 10-37 U/L Alanine Aminotransferase (ALT/SGPT) 25 12-78 U/L Alkaline Phosphatase 80 50-136 U/L Total Protein 6.5 6.0-8.3 g/dL Albumin 2.9 L 3.5-5.0 g/dL Hemoglobin A1c 10.7 H 4.0-6.0 % Estimated Average Glucose (eAG) 260 H 70-126 mg/dL C-Reactive Protein, Quantitative 8.60 H 0.5-3.0 mg/L Diagnostics / Radiology: [Copy/Paste Echos/Imaging Report here] Assessment: [Perianal/perirectal abscess ] Plan: [Plan incision and drainage of abscess. Risks associated with the procedure not limited to infection, bleeding, injury to surrounding structures has been discussed with the patient and his and they indicate they understand and agree with the plan. ] LUCY HUMMEL MD Apr 13, 2025 12:58
[2025-04-13] MEDS ORDERED: VANCOMYCIN PROTOCOL PER PHARMACY IV SCH (13:30)
[2025-04-13] MEDS: ceFEPime HCL 1 GM VIAL IVPB SCH (13:35)
[2025-04-13 16:01] VITALS: BP 151/89; PULSE 87; RESP 18; TEMP 97.1
[2025-04-13] MEDS: VANCOMYCIN 1.75 GM/250 ML BAG 250 ML IV SCH (16:19)
[2025-04-13 20:32] VITALS: BP 143/84; PULSE 76; RESP 20; TEMP 98.3
[2025-04-13] MEDS: INSULIN GLARgine 100 UNITS/ML 10 ML VIAL SQ SCH (20:53)
[2025-04-13] MEDS: FAMOTIDINE 20MG TAB PO SCH (21:07)
[2025-04-13] MEDS: morPHINE 2 MG SYG IV PRN (21:08)
[2025-04-14] VITALS (28 sets, daily range): BP systolic 129–163; BP diastolic 59–93; PULSE 66–94; RESP 15–20; TEMP 97.4–98.2; O2SAT 96–100
--- NOTE | 2025-04-14 01:37 | CONS ---
INFECTIOUS DISEASE CONSULTATION DATE OF SERVICE: 04/13/2025 REQUESTING PHYSICIAN: Christen Merida NP REASON FOR CONSULTATION: Gluteal abscess. HISTORY OF PRESENT ILLNESS: This is a 44-year-old male with obesity, diabetes mellitus and hypertension, who presented to the hospital with fever, left perirectal pain and swelling. The patient . The patient is afebrile, T-max at home was 102F. A CT of the pelvis has been done and shows perirectal abscess. The patient has been seen by Surgery and plan is for surgical intervention tomorrow. No cough, no hemoptysis or pleuritic pain. Denies dysuria or urinary frequency. PAST MEDICAL HISTORY: * Diabetes mellitus. * Hypertension. * Obesity. PAST SURGICAL HISTORY: Meniscal repair. ALLERGIES: No known drug allergies. CURRENT MEDICATIONS: Include, * Ceftriaxone. * Insulin. * Tylenol. * . SOCIAL HISTORY: . No alcohol, tobacco, or illicit drug use. FAMILY HISTORY: Positive for diabetes mellitus. REVIEW OF SYSTEMS: Greater than 10 systems were reviewed except as documented above. PHYSICAL EXAMINATION: GENERAL: Young male, awake. VITAL SIGNS: Temperature 97.2, pulse 82, respirations 18, BP 143/80. EYES: No icterus. Pupils equal and reactive. HENT: No oral thrush seen. Moist oral mucosa. NECK: Supple. No JVD or thyromegaly. LUNGS: Good air entry. No rales, no rhonchi. CARDIOVASCULAR: S1 and S2. Regular. No murmur heard. ABDOMEN: Full, soft, nontender. Bowel sound is present. CENTRAL NERVOUS SYSTEM: Awake, alert, oriented x 3. No focal deficits. SKIN: No rashes, no itchiness. LYMPHATIC: No peripheral lymphadenopathy. BACK: No deformity, no pressure ulcer. MUSCULOSKELETAL: No joint swelling, erythema, or tenderness. LABORATORY DATA: Sodium 141, potassium 3.7, BUN 7, creatinine 0.7. WBC 8.6, hemoglobin 13.2, platelets 222. RADIOLOGY: CT of the pelvis abscess. ASSESSMENT: A 44-year-old male presenting with perineal pain, swelling, and redness. CURRENT PROBLEMS: Include, * Perineal abscess. * Diabetes mellitus. * Obesity. PLAN: * Discontinue ceftriaxone. * Start the patient of vancomycin. * Start the patient on cefepime. * Continue Flagyl. * Continue antidiabetic. * Continue pain management. * Continue wound care. * Follow up culture. * Monitor electrolytes. * The patient will be followed up closely. Thank you for allowing me to participate in the care of this patient. TID: [id number] RECEIPT: [id number] MTDDelma
[2025-04-14 05:32] LABS: BASOPHILS # (AUTO) 0.09 K/uL (0.00-0.20); BASOPHILS % (AUTO) 0.9 % (0.0-5.0); EOSINOPHILS # (AUTO) 0.49 K/uL (0.00-0.70); EOSINOPHILS % (AUTO) 4.9 % (0.0-8.0); HEMATOCRIT 39.1 % (42-54); IMMATURE GRANULOCYTE ABSOLUTE 0.09 K/uL (0-1); LYMPHOCYTES # (AUTO) 3.2 K/uL (1.0-4.8); LYMPHOCYTES % (AUTO) 31.5 % (21.0-51.0); MEAN CORPUSCULAR HEMOGLOBIN 29.7 pg (27.0-33.0); MEAN CORPUSCULAR HGB CONC 34.3 g/dL (32.0-36.0); MEAN CORPUSCULAR VOLUME 86.7 fL (79-99); MONOCYTES # (AUTO) 0.8 K/uL (0.1-1.0); MONOCYTES % (AUTO) 7.8 % (3.0-13.0); NEUTROPHILS # (AUTO) 5.4 K/uL (1.8-7.7); PLATELET COUNT (AUTO) 239 K/uL (130-400); RED BLOOD CELL COUNT(AUTO) 4.51 MIL/uL (4.50-6.20); RED CELL DISTRIBUTION WIDTH 12.1 % (11.0-15.5)
[2025-04-14 05:51] LABS: CREATININE 0.7 mg/dL (0.5-1.3)
[2025-04-14] MEDS ORDERED: MIDAZOLAM HCL 1 MG/ML 2ML VIAL ONE (06:42)
[2025-04-14] MEDS ORDERED: FENTanyl CITRate PF 50 MCG/1 ML 2ML VIAL ONE ×2 (06:43→07:59)
[2025-04-14] MEDS ORDERED: proPOFol 10 MG/ML 20ML VIAL IV ONE (06:43)
[2025-04-14] MEDS ORDERED: rocuRONium bROMide 10MG/1ML 5ML VL ONE (07:01)
[2025-04-14] MEDS ORDERED: ondanSETRON 4MG INJ ONE (07:03)
[2025-04-14] MEDS ORDERED: SUCCINYLCHOLINE CHLORIDE 20 MG/ML 10 ML VIAL ONE (07:38)
[2025-04-14] MEDS ORDERED: BUPIvacaine/PF 0.25% 30ML VIAL IJ ONE (07:55)
[2025-04-14] MEDS: BUPIvacaine/PF 0.25% 30ML VIAL IJ ONE (07:59)
[2025-04-14] MEDS ORDERED: GLYCOPYRROLATE 0.2 MG/ML 5 ML VIAL ONE (08:10)
[2025-04-14] MEDS ORDERED: NEOSTIGMINE METHYLSULFATE 1MG/ML IV ONE (08:10)
--- NOTE | 2025-04-14 08:16 | OP ---
Operative Note: DATE OF PROCEDURE: 04/14/25 SURGEON: LUCY HUMMEL MD CLINICAL ESTHETICIAN: [JACQUELINE Mcdonough] ANESTHESIA: [General endotracheal anesthesia] ANESTHESIOLOGIST/TIMBER SETTER: [[facility] anesthesia team] PREOPERATIVE DIAGNOSIS: [Perirectal abscess] POSTOPERATIVE DIAGNOSIS: [Same] SYNOPSIS: [Perirectal abscess Incision and drainage and debridement of all necrotic tissue from perirectal abscess, complete evacuation of intersphincteric abscess cavity All sponges and instruments were accounted for at the end the case Patient tolerated the procedure well, there no complications] PROCEDURE: [Incision and drainage and debridement of all necrotic tissue from perirectal abscess as well as complete evacuation of intersphincteric abscess cavity] ESTIMATED BLOOD LOSS: [Less than 10 cc] INDICATIONS: [Perirectal abscess] DESCRIPTION OF PROCEDURE: [On day of surgery patient presented to the hospital. Patient was brought back to operating room. Positioned in the supine position. Preoperative antibiotics were given. Bilateral SCDs were placed. Patient was intubated. Patient then was positioned in the lithotomy position. Patient then was prepped and draped the usual fashion. Local anesthetic was instilled in the skin surrounding the abscess. A circular incision was made. Cultures were taken for Gram stain, aerobic and anaerobic culture and sensitivity. Then the entire cavity was probed with a curved inflamed as well as digitally. The abscess cavity appeared to extend up into the perirectal space and into the intersphincteric cavity. All the loculations were broken down. Cavity was co piously irrigated. All irrigation was removed. Appropriate hemostasis was observed. The extent of the cavity was then once again probed and no fistulas were identified. This point in time the decision was made to pack the cavity with Kerlix soaked in Betadine. Once this was done appropriate dressings were placed. Patient then was woken up, transferred to a stretcher, taken to recovery recovery. All sponges and instruments were accounted for at the end the case. Patient tolerated the procedure well, there no complications. Thank you very much . LUCY HUMMEL MD Apr 14, 2025 08:16
[2025-04-14] MEDS ORDERED: NON-FORMULARY MEDICATION 1 EACH (Valsartan/Hydrochlorothiazide (Valsartan-Hctz 160-25 mg T PO SCH (09:00)
[2025-04-14] MEDS: LoSARTan 100 MG TABLET PO SCH (09:19)
[2025-04-14] MEDS: hydroCHLOROthiazide 25 MG TABLET PO SCH (09:19)
[2025-04-14] MEDS: atorVAStatin 20 MG TABLET PO SCH (09:19)
[2025-04-14] MEDS: acetaMINOPHEN 325 MG TAB PO PRN (09:23)
--- NOTE | 2025-04-14 12:18 | PN ---
INFECTIOUS DISEASE PROGRESS NOTE Date of Service: Apr 14, 2025 SUBJECTIVE: This 44 year old male patient is being seen today at bedside. Patient states post Perirectal abscess Incision and drainage and debridement of all necrotic tissue from perirectal abscess. Patient at this time denies pain. No fever or chills. He is awake, alert and oriented x3. Patient to continue with antibiotics. We'll follow with wound cultures. PHYSICAL EXAM EYES: Anicteric. Pupils equal and reactive. HENT: No oral thrush seen, moist Oral mucosa NECK: Supple, no JVD or thyromegaly. LUNGS: Good air entry. No rales, no rhonchi. CARDIOVASCULAR: S1, S2 regular. No murmur heard. ABDOMEN: Soft, non tender, bowel sounds present, no organomegaly CENTRAL NERVOUS SYSTEM: Awake, alert, oriented x 3. No focal deficits. SKIN: No rashes, no swelling. LYMPHATICS: No peripheral lymphadenopathy MUSCULOSKELETAL: No joint swelling, erythema or tenderness. EXTREMITIES: No cyanosis or clubbing BACK: No deformity, no pressure ulcer. GENITOURINARY: Perirectal surgical wound, dry dressing noted. Vital Sign (Last 12 Hours) 04/14/25 04/14/25 04/14/25 04/14/25 04:32 04:49 08:22 08:27 Temp 98.2 97.7 Pulse 86 80 82 Resp 18 18 16 B/P (MAP) 147/87 139/88 143/83 Pulse Ox 96 100 100 98 O2 Delivery Room Air Room Air* Nonrebreathing Mask Room Air O2 Flow Rate 0 10.0 FiO2 21 04/14/25 04/14/25 04/14/25 04/14/25 08:32 08:37 08:42 08:47 Pulse 82 90 86 82 Resp 15 17 16 15 B/P (MAP) 132/81 138/78 145/72 137/75 Pulse Ox 98 98 98 97 O2 Delivery Room Air Room Air Room Air Room Air 04/14/25 04/14/25 04/14/25 04/14/25 08:52 08:57 09:02 09:07 Temp 97.5 Pulse 89 90 94 89 Resp 16 17 18 16 B/P (MAP) 138/78 143/83 147/79 141/75 Pulse Ox 97 97 98 97 O2 Delivery Room Air Room Air Room Air Room Air Intake & Output (last 24hrs) 04/13/25 04/13/25 04/14/25 15:00 23:00 07:00 Intake Total 550 ml 300 ml Balance 550 ml 300 ml LABS: Laboratory: Test 04/14/25 10:59 04/14/25 04:57 04/13/25 05:14 04/12/25 13:28 Range/Units Whole Blood Glucose 145 H 70-110 MG/DL White Blood Count 10.0 4.8-10.8 K/uL Red Blood Count 4.51 4.50-6.20 MIL/uL Hemoglobin 13.4 L 14.0-18.0 g/dL Hematocrit 39.1 L 42-54 % Mean Corpuscular Volume 86.7 79-99 fL Mean Corpuscular Hemoglobin 29.7 27.0-33.0 pg Mean Corpuscular Hemoglobin Concent 34.3 32.0-36.0 g/dL Red Cell Distribution Width 12.1 11.0-15.5 % Platelet Count 239 130-400 K/uL Mean Platelet Volume 10.4 7.5-10.5 fL Immature Granulocyte % (Auto) 0.9 0-1 % Neutrophils (%) (Auto) 54.0 40.0-77.0 % Lymphocytes (%) (Auto) 31.5 21.0-51.0 % Monocytes (%) (Auto) 7.8 3.0-13.0 % Eosinophils (%) (Auto) 4.9 0.0-8.0 % Basophils (%) (Auto) 0.9 0.0-5.0 % Neutrophils # (Auto) 5.4 1.8-7.7 K/uL Lymphocytes # (Auto) 3.2 1.0-4.8 K/uL Monocytes # (Auto) 0.8 0.1-1.0 K/uL Eosinophils # (Auto) 0.49 0.00-0.70 K/uL Basophils # (Auto) 0.09 0.00-0.20 K/uL Absolute Immature Granulocyte (auto 0.09 0-1 K/uL Nucleated Red Blood Cells 0.0 0.0-0.19 % Sodium Level 139 136-145 mmol/L Potassium Level 4.0 3.5-5.1 mmol/L Chloride Level 106 101-111 mmol/L Carbon Dioxide Level 28 21-32 mmol/L Blood Urea Nitrogen 13 7-18 mg/dL Creatinine 0.7 0.5-1.3 mg/dL Glomerular Filtration Rate Calc 115 >90 mL/min Random Glucose 192 H 70-105 mg/dL Total Calcium 8.3 L 8.5-10.1 mg/dL Total Bilirubin 0.4 # 0.2-1.0 mg/dL Aspartate Amino Transf (AST/SGOT) 4 L 10-37 U/L Alanine Aminotransferase (ALT/SGPT) 25 12-78 U/L Alkaline Phosphatase 80 50-136 U/L Total Protein 6.5 6.0-8.3 g/dL Albumin 2.9 L 3.5-5.0 g/dL Erythrocyte Sedimentation Rate 35 H 0-15 MM/HR Hemoglobin A1c 10.7 H 4.0-6.0 % Estimated Average Glucose (eAG) 260 H 70-126 mg/dL C-Reactive Protein, Quantitative 8.60 H 0.5-3.0 mg/L ASSESSMENT: * Ailyn rectal abscess status post debridement * Diabetes mellitus. * Obesity. PLAN: * Start the patient of vancomycin. * Start the patient on cefepime. * Continue Flagyl. * Continue antidiabetic. * Continue pain management. * Continue wound care. * Follow up culture. * Monitor electrolytes. * The patient will be followed up closely. This case has been discussed with my supervising physician Dr. Crowe. [facility] Apr 14, 2025 12:18
--- NOTE | 2025-04-14 13:05 | PN ---
[facility] PROGRESS NOTE Date of Service: Apr 14, 2025 Time of Service: 13:04 SUBJECTIVE: The patient is a 44-year-old male with a history of type 2 diabetes mellitus and hypertension who presented to the emergency department on April 12 with complaints of right buttock pain. He noticed a bump seven days ago and experienced a fever of 101F. Over the course of a week, he observed worsening pain and some purulent discharge. The pain became so severe that he sought emergency care. A CT scan revealed a left posterior perirectal abscess measuring 3.1 cm. Laboratory results indicated a uncontrolled hyperglycemia with hemoglobin A1c of 10.7, whole blood glucose of 214, and an albumin level of 2.9. The patient was admitted for management of the perirectal abscess. 04/13/25: Upon bedside examination, the patient appeared hemodynamically stable and denied having any fever, chills, abdominal pain, dizziness, or hematochezia. His glucose levels improved to 159 from 214. Inflammatory markers are elevated, ESR 35, and CRP 8.6. Other remarkable labs, albumin 2.9, corrected calcium 9.2. Blood culture showed no growth in 24 hours. He was started on cefepime, vancomycin, and metronidazole for broad-spectrum coverage following recommendations from the Infectious Disease team. The general surgeon plans to perform an incision and drainage procedure tomorrow morning. Further assessment and plan discussed below. 04/14/25 patient was seen and examined. Case discussed with RN. Family was by the bedside. He was doing much better denies any fever or chills but does have some pain. He was anxious to go home. We are waiting for wound culture results to come back. We will continue broad-spectrum IV antibiotics per Infectious Disease recommendations REVIEW OF SYSTEMS CONSTITUTIONAL: Subjective fever at home, no chills, or night sweats. No unintentional weight loss reported. NEUROLOGICAL: Denies headache, amaurosis fugax, motor weakness, sensory deficit, vertigo/spinning sensation, gait abnormalities, or tremors. ENT: No hearing loss, otalgia, otorrhea, rhinitis, rhinorrhea, hoarseness, or sore throat. CARDIOVASCULAR: Denies any exertional angina, dyspnea on exertion, orthopnea, paroxysmal nocturnal dyspnea, palpitations, life-threatening arrhythmias, claudication. PULMONARY: Denies any shortness of breath, cough, phlegm/sputum, hemoptysis, pleuritic chest pain. SLEEP: Denies morning headaches, daytime somnolence or napping. Denies difficulty falling asleep, staying asleep, waking from sleep. Denies knowledge of snoring. GASTROINTESTINAL: Denies any type of dysphagia to either liquids or solids. Denies nausea, vomiting, pyrosis, early satiety, abdominal pain, diarrhea, constipation, or changes in stool consistency or caliber. Denies coffee-ground emesis, hematemesis, hematochezia, or melanotic stools. GENITOURINARY: Right buttock swelling, Denies frequency, urgency, nocturia, hematuria or incontinence (Storage/Irritative symptoms.) Low urinary stream, straining to void, urinary intermittency or hesitancy, splitting of the voiding stream, terminal dribbling. ENDOCRINOLOGIC: Denies polyuria, polydipsia, polyphagia or heat/cold intolerances. HEMATOLOGIC: Denies thrombophilia/previous clots, or coagulopathy/bleeding disorders. ONCOLOGIC: Denies personal history of malignancy. DERMATOLOGIC: Denies rashes or pruritus. PSYCHIATRIC: Denies any suicidal or homicidal ideation. Denies hallucinations. PHYSICAL EXAM GENERAL APPEARANCE: The patient is awake, alert, and oriented, in no acute cardiopulmonary distress. NEUROLOGICAL: Cranial nerves II-XII grossly intact. Motor is 5/5 in bilateral upper and lower extremities proximal to distal. No sensory deficits. HEENT: Face is symmetric. Pupils are equal and reactive. Extraocular movements are intact. NECK: Supple. No JVD. No thyromegaly. No submental, submandibular, pre-/postau ricular, occipital or supraclavicular lymphadenopathy. CHEST: Normal chest expansion. No Telemetry. LUNGS: Absence of any rales, rhonchi or any wheezing. CARDIOVASCULAR: Regular. S1 and S2 normal. No appreciable rubs, murmurs or gallops. ABDOMEN: Soft, nontender, and nondistended. There is no rebound, voluntary guarding, or rigidity. : Deferred. No Fenton. EXTREMITIES: Non-edematous and not cyanotic. No clubbing. Good capillary refill. SKIN: No skin breakdown. Vital Signs (last 8hr) Date Time Temp Pulse Resp B/P (MAP) Pulse Ox O2 Delivery O2 Flow Rate FiO2 04/14/25 12:00 69 18 136/80 96 Room Air 04/14/25 11:00 97.3 68 18 130/73 96 Room Air 04/14/25 10:30 67 18 138/72 96 Room Air 04/14/25 10:00 89 18 133/59 96 Room Air 04/14/25 09:45 66 18 129/77 96 Room Air 04/14/25 09:30 71 18 139/77 96 Room Air 04/14/25 09:15 86 18 147/82 96 Room Air 04/14/25 09:10 97.3 75 18 156/92 97 Room Air 04/14/25 09:07 97.5 89 16 141/75 97 Room Air 04/14/25 09:02 94 18 147/79 98 Room Air 04/14/25 08:57 90 17 143/83 97 Room Air 04/14/25 08:52 89 16 138/78 97 Room Air 04/14/25 08:47 82 15 137/75 97 Room Air 04/14/25 08:42 86 16 145/72 98 Room Air 04/14/25 08:37 90 17 138/78 98 Room Air 04/14/25 08:32 82 15 132/81 98 Room Air 04/14/25 08:27 82 16 143/83 98 Room Air 04/14/25 08:22 97.7 80 18 139/88 100 Nonrebreathing Mask 10.0 LABS: Laboratory: Test 04/14/25 10:59 04/14/25 04:57 04/13/25 05:14 04/12/25 13:28 Range/Units Whole Blood Glucose 145 H 70-110 MG/DL White Blood Count 10.0 4.8-10.8 K/uL Red Blood Count 4.51 4.50-6.20 MIL/uL Hemoglobin 13.4 L 14.0-18.0 g/dL Hematocrit 39.1 L 42-54 % Mean Corpuscular Volume 86.7 79-99 fL Mean Corpuscular Hemoglobin 29.7 27.0-33.0 pg Mean Corpuscular Hemoglobin Concent 34.3 32.0-36.0 g/dL Red Cell Distribution Width 12.1 11.0-15.5 % Platelet Count 239 130-400 K/uL Mean Platelet Volume 10.4 7.5-10.5 fL Immature Granulocyte % (Auto) 0.9 0-1 % Neutrophils (%) (Auto) 54.0 40.0-77.0 % Lymphocytes (%) (Auto) 31.5 21.0-51.0 % Monocytes (%) (Auto) 7.8 3.0-13.0 % Eosinophils (%) (Auto) 4.9 0.0-8.0 % Basophils (%) (Auto) 0.9 0.0-5.0 % Neutrophils # (Auto) 5.4 1.8-7.7 K/uL Lymphocytes # (Auto) 3.2 1.0-4.8 K/uL Monocytes # (Auto) 0.8 0.1-1.0 K/uL Eosinophils # (Auto) 0.49 0.00-0.70 K/uL Basophils # (Auto) 0.09 0.00-0.20 K/uL Absolute Immature Granulocyte (auto 0.09 0-1 K/uL Nucleated Red Blood Cells 0.0 0.0-0.19 % Sodium Level 139 136-145 mmol/L Potassium Level 4.0 3.5-5.1 mmol/L Chloride Level 106 101-111 mmol/L Carbon Dioxide Level 28 21-32 mmol/L Blood Urea Nitrogen 13 7-18 mg/dL Creatinine 0.7 0.5-1.3 mg/dL Glomerular Filtration Rate Calc 115 >90 mL/min Random Glucose 192 H 70-105 mg/dL Total Calcium 8.3 L 8.5-10.1 mg/dL Total Bilirubin 0.4 # 0.2-1.0 mg/dL Aspartate Amino Transf (AST/SGOT) 4 L 10-37 U/L Alanine Aminotransferase (ALT/SGPT) 25 12-78 U/L Alkaline Phosphatase 80 50-136 U/L Total Protein 6.5 6.0-8.3 g/dL Albumin 2.9 L 3.5-5.0 g/dL Erythrocyte Sedimentation Rate 35 H 0-15 MM/HR Hemoglobin A1c 10.7 H 4.0-6.0 % Estimated Average Glucose (eAG) 260 H 70-126 mg/dL C-Reactive Protein, Quantitative 8.60 H 0.5-3.0 mg/L Current Medications Medications (Trade) Dose Ordered Sig/Daria Route PRN Reason Start Time Stop Time Status Last Admin Dose Admin Acetaminophen (TYLenol 325MG TAB) 650 mg Q4H PRN PO MILD PAIN (1-3) 6/6/25 09:30 05/13/25 09:29 04/14/25 09:23 650 MG Acetaminophen (TYLenol 325MG TAB) 650 mg Q6H PRN PO TEMPERATURE GREATER THAN 101.5 04/13/25 09:30 05/13/25 09:29 Atorvastatin Calcium (LIPItor 20MG) 20 mg DAILY PO 04/14/25 09:00 05/14/25 08:59 04/14/25 09:19 20 MG Cefepime HCl (MAXipime 1 GM vial) 1 gm Q8H IVPB 04/13/25 13:30 04/23/25 13:29 04/14/25 12:25 1 GM Ceftriaxone Sodium (Rocephin 2gm Inj) 2 gm Q24H IVPB 04/12/25 15:30 04/13/25 13:21 DC 04/12/25 16:41 2 GM Dextrose (D50w) 50 ml AD PRN IV HYPOGLYCEMIA PROTOCOL 04/12/25 15:30 05/12/25 15:29 Famotidine (Pepcid 20mg Tab) 20 mg BID PO 04/13/25 21:00 05/13/25 20:59 04/14/25 09:19 20 MG Glucagon (Glucagon 1mg Kit) 1 mg AD PRN IM HYPOGLYCEMIA PROTOCOL 04/12/25 15:30 05/12/25 15:29 Hydrochlorothiazide (hydroCHLOROthiazide 25MG) 25 mg DAILY PO 04/14/25 09:00 05/14/25 08:59 04/14/25 09:19 25 MG Hydromorphone HCl (DiLAUDid 1MG INJ) 0.5 mg Q4H PRN IV SEVERE PAIN (7-10) 04/13/25 09:30 04/18/25 09:29 Insulin Glargine (LANtus 100 UNITS/ML 10 ML VIAL) 10 units HS SQ 04/13/25 21:00 05/13/25 20:59 04/13/25 20:53 10 UNITS Insulin Human Regular (humuLIN R 100 UNIT/ML 3ML) INSULIN SLIDING SCAL... ACHS SQ 04/12/25 16:30 05/12/25 16:29 04/13/25 20:52 4 UNIT Losartan Potassium (CozAAR 100MG TAB) 100 mg DAILY PO 04/14/25 09:00 05/14/25 08:59 04/14/25 09:19 100 MG Magnesium Sulfate 50 ml @ 0 mls/hr PROTOCOL PRN IV MAGNESIUM PROTOCOL 04/12/25 15:30 05/12/25 15:29 Metronidazole/ Sodium Chloride 100 ml @ 100 mls/hr Q8H6 IVPB 04/12/25 18:00 04/22/25 17:59 04/14/25 06:18 100 MLS/HR Metronidazole/ Sodium Chloride 100 ml @ 100 mls/hr Q8H6 IVPB 04/12/25 22:00 04/12/25 17:32 DC Miscellaneous Medication (Valsartan/ Hydrochlorothiazide (Valsartan-Hctz 160-25 mg Tab)) 1 tab DAILY PO 04/14/25 09:00 04/13/25 09:23 DC Morphine Sulfate (morPHINE 2MG SYG) 2 mg Q4H PRN IV MODERATE PAIN (4-6) 04/13/25 09:30 04/20/25 09:29 04/13/25 21:08 2 MG Potassium Chloride 100 ml @ 100 mls/hr AD PRN IV POTASSIUM PROTOCOL 04/12/25 15:30 05/12/25 15:29 Potassium Chloride (K-Dur/Klor-Con 20meq) 20 meq AD PRN PO POTASSIUM PROTOCOL 04/12/25 15:30 05/12/25 15:29 Potassium Chloride (KCl 10% Elixir 20meq/15ml) 20 meq AD PRN PO POTASSIUM PROTOCOL 04/12/25 15:30 05/12/25 15:29 Vancomycin HCl 250 ml @ 125 mls/hr Q12H IV 04/13/25 16:00 04/23/25 15:59 04/14/25 04:59 125 MLS/HR Vancomycin HCl (Vancomycin Protocol) 1 each AD IV 04/13/25 13:30 04/27/25 13:29 DIAGNOSTICS / RADIOLOGY: [ ] ASSESSMENT: Left perirectal abscess measuring 3.1 cm, POA Elevated inflammatory markers, ESR, CRP POA Hyperglycemia with uncontrolled type 2 diabetes mellitus A1c 10.7%, POA Hypertension, POA Hypoalbuminemia, POA Hyperlipidemia, POA PLAN: The patient remains admitted on the medical surgical floor. Left perirectal abscess measuring 3.1 cm, POA Elevated inflammatory markers, ESR, CRP POA * Incision and drainage is scheduled by General surgeon tomorrow. Wound cultures requested post drainage. * Continue with broad-spectrum IV antibiotics cefepime, vancomycin, and metronidazole. * Blood Culture showed no growth in 24 hours. Follow up with the cultures. * Follow Infectious Disease recommendations. * Monitor for fever. Hyperglycemia with uncontrolled type 2 diabetes mellitus A1c 10.7%, POA * Start with insulin Lantus 10 units nightly for basal coverage * A.c. and HS glucometer and insulin sliding scale * Continue with diabetic diet Hypertension, POA * Continue with losartan 100 mg daily. * Continue with [id number] mg daily. Hyperlipidemia, POA * Continue with atorvastatin 20 mg p.o. daily. DVT prophylaxis: SCD's today due scheduled I and D tomorrow. GI prophylaxis: Famotidine 20 mg p.o. b.i.d. P.r.n. medications * Hydromorphone 0.5 mg q.4 for severe pain (7-10) * Morphine 2 mg q.4 for moderate pain (4-6) * Tylenol 650 mg q.4 for mild pain (1-4) * Tylenol 650 mg for fever A.m. labs, CBC, BMP Assessment and plan was discussed in detail and the patient. The patient verbalizes understanding. Further orders per hospitalization course. EMILY TAMAYO MD Apr 14, 2025 13:05
[2025-04-14] MEDS: hydroMORPHone 1 MG INJ IV PRN (15:01)
--- NOTE | 2025-04-14 18:46 | NUR ---
POST OP DAY 1 PATIENT NEEDED TO HAVE A BOWEL MOVEMENT RIGHT AFTER POST INCISION AND DRAINAGE OF PELVIC ABSCESS. PATIENT REMOVED PACKING AND WOUNDCARE DONE IN SURGERY AND PROCEEDED WITH A WARM SHOWER AND SOAP CLEANING. GAVE THE PATIENT EDUCATION ON WOUND CARE AND PROVIDED ABD PADS FOR DRAINAGE.
[2025-04-15] VITALS (8 sets, daily range): BP systolic 131–170; BP diastolic 69–98; PULSE 71–86; RESP 16–20; TEMP 97.5–98; O2SAT 92–94
[2025-04-15] MEDS: HEParin 5,000 UNIT VIAL SQ SCH (10:01)
--- NOTE | 2025-04-15 13:41 | PN ---
[facility] PROGRESS NOTE Date of Service: Apr 15, 2025 Time of Service: 13:27 SUBJECTIVE: The patient is a 44-year-old male with a history of type 2 diabetes mellitus and hypertension who presented to the emergency department on April 12 with complaints of right buttock pain. He noticed a bump seven days ago and experienced a fever of 101F. Over the course of a week, he observed worsening pain and some purulent discharge. The pain became so severe that he sought emergency care. A CT scan revealed a left posterior perirectal abscess measuring 3.1 cm. Laboratory results indicated a uncontrolled hyperglycemia with hemoglobin A1c of 10.7, whole blood glucose of 214, and an albumin level of 2.9. The patient was admitted for management of the perirectal abscess. 04/13/25: Upon bedside examination, the patient appeared hemodynamically stable and denied having any fever, chills, abdominal pain, dizziness, or hematochezia. His glucose levels improved to 159 from 214. Inflammatory markers are elevated, ESR 35, and CRP 8.6. Other remarkable labs, albumin 2.9, corrected calcium 9.2. Blood culture showed no growth in 24 hours. He was started on cefepime, vancomycin, and metronidazole for broad-spectrum coverage following recommendations from the Infectious Disease team. The general surgeon plans to perform an incision and drainage procedure tomorrow morning. Further assessment and plan discussed below. 04/14/25 patient was seen and examined. Case discussed with RN. Family was by the bedside. He was doing much better denies any fever or chills but does have some pain. He was anxious to go home. We are waiting for wound culture results to come back. We will continue broad-spectrum IV antibiotics per Infectious Disease recommendations. 04/15/25: The patient was examined at the bedside today and reports significant improvement in gluteal pain. He underwent incision and drainage, as well as debridement of necrotic tissue from a perirectal abscess by Dr. Mejía yesterday, on April 14, 2025. There were no complications following the procedure. He is currently receiving cefepime, vancomycin, and metronidazole. His blood sugar levels have been slightly elevated, with a recent reading of 182. We will increase the Lantus dosage to 15 units at bedtime. Other lab results are unremarkable. We will continue administering IV antibiotics and daily dressings. Upon examination, gluteal cleft rash was observed, we will order zinc oxide topical application. We will follow the recommendations from Surgery and Infectious Disease teams. Further assessment and planning are discussed below. REVIEW OF SYSTEMS CONSTITUTIONAL: Subjective fever at home, no chills, or night sweats. No unintentional weight loss reported. NEUROLOGICAL: Denies headache, amaurosis fugax, motor weakness, sensory deficit, vertigo/spinning sensation, gait abnormalities, or tremors. ENT: No hearing loss, otalgia, otorrhea, rhinitis, rhinorrhea, hoarseness, or sore throat. CARDIOVASCULAR: Denies any exertional angina, dyspnea on exertion, orthopnea, paroxysmal nocturnal dyspnea, palpitations, life-threatening arrhythmias, claudication. PULMONARY: Denies any shortness of breath, cough, phlegm/sputum, hemoptysis, pleuritic chest pain. SLEEP: Denies morning headaches, daytime somnolence or napping. Denies difficulty falling asleep, staying asleep, waking from sleep. Denies knowledge of snoring. GASTROINTESTINAL: Denies any type of dysphagia to either liquids or solids. Denies nausea, vomiting, pyrosis, early satiety, abdominal pain, diarrhea, constipation, or changes in stool consistency or caliber. Denies coffee-ground emesis, hematemesis, hematochezia, or melanotic stools. GENITOURINARY: Right buttock pain, Denies frequency, urgency, nocturia, hematuria or incontinence (Storage/Irritative symptoms.) Low urinary stream, straining to void, urinary intermittency or hesitancy, splitting of the voiding stream, terminal dribbling. ENDOCRINOLOGIC: Denies polyuria, polydipsia, polyphagia or heat/cold intolerances. HEMATOLOGIC: Denies thrombophilia/previous clots, or coagulopathy/bleeding disorders. ONCOLOGIC: Denies personal history of malignancy. DERMATOLOGIC: Denies rashes or pruritus. PSYCHIATRIC: Denies any suicidal or homicidal ideation. Denies hallucinations. PHYSICAL EXAM GENERAL APPEARANCE: The patient is awake, alert, and oriented, in no acute cardiopulmonary distress. NEUROLOGICAL: Cranial nerves II-XII grossly intact. Motor is 5/5 in bilateral upper and lower extremities proximal to distal. No sensory deficits. HEENT: Face is symmetric. Pupils are equal and reactive. Extraocular movements are intact. NECK: Supple. No JVD. No thyromegaly. No submental, submandibular, pre- /postauricular, occipital or supraclavicular lymphadenopathy. CHEST: Normal chest expansion. No Telemetry. LUNGS: Absence of any rales, rhonchi or any wheezing. CARDIOVASCULAR: Regular. S1 and S2 normal. No appreciable rubs, murmurs or gallops. ABDOMEN: Soft, nontender, and nondistended. There is no rebound, voluntary guarding, or rigidity. : open incision and drainage wound over left Ailyn rectal region, packing in placed, gluteal cleft rash was noted: Non-edematous and not cyanotic. No clubbing. Good capillary refill. SKIN: No skin breakdown. Vital Signs (last 8hr) Date Time Temp Pulse Resp B/P (MAP) Pulse Ox O2 Delivery O2 Flow Rate FiO2 04/15/25 11:27 97.5 74 18 138/74 97 Room Air 04/15/25 08:00 92 Room Air* 0 21 04/15/25 07:56 98.1 75 18 131/69 92 Room Air LABS: Laboratory: Test 04/15/25 10:56 04/14/25 04:57 Range/Units Whole Blood Glucose 272 H 70-110 MG/DL White Blood Count 10.0 4.8-10.8 K/uL Red Blood Count 4.51 4.50-6.20 MIL/uL Hemoglobin 13.4 L 14.0-18.0 g/dL Hematocrit 39.1 L 42-54 % Mean Corpuscular Volume 86.7 79-99 fL Mean Corpuscular Hemoglobin 29.7 27.0-33.0 pg Mean Corpuscular Hemoglobin Concent 34.3 32.0-36.0 g/dL Red Cell Distribution Width 12.1 11.0-15.5 % Platelet Count 239 130-400 K/uL Mean Platelet Volume 10.4 7.5-10.5 fL Immature Granulocyte % (Auto) 0.9 0-1 % Neutrophils (%) (Auto) 54.0 40.0-77.0 % Lymphocytes (%) (Auto) 31.5 21.0-51.0 % Monocytes (%) (Auto) 7.8 3.0-13.0 % Eosinophils (%) (Auto) 4.9 0.0-8.0 % Basophils (%) (Auto) 0.9 0.0-5.0 % Neutrophils # (Auto) 5.4 1.8-7.7 K/uL Lymphocytes # (Auto) 3.2 1.0-4.8 K/uL Monocytes # (Auto) 0.8 0.1-1.0 K/uL Eosinophils # (Auto) 0.49 0.00-0.70 K/uL Basophils # (Auto) 0.09 0.00-0.20 K/uL Absolute Immature Granulocyte (auto 0.09 0-1 K/uL Nucleated Red Blood Cells 0.0 0.0-0.19 % Sodium Level 139 136-145 mmol/L Potassium Level 4.0 3.5-5.1 mmol/L Chloride Level 106 101-111 mmol/L Carbon Dioxide Level 28 21-32 mmol/L Blood Urea Nitrogen 13 7-18 mg/dL Creatinine 0.7 0.5-1.3 mg/dL Glomerular Filtration Rate Calc 115 >90 mL/min Random Glucose 192 H 70-105 mg/dL Total Calcium 8.3 L 8.5-10.1 mg/dL Current Medications Medications (Trade) Dose Ordered Sig/Daria Route PRN Reason Start Time Stop Time Status Last Admin Dose Admin Acetaminophen (TYLenol 325MG TAB) 650 mg Q4H PRN PO MILD PAIN (1-3) 04/13/25 09:30 05/13/25 09:29 04/14/25 09:23 650 MG Acetaminophen (TYLenol 325MG TAB) 650 mg Q6H PRN PO TEMPERATURE GREATER THAN 101.5 04/13/25 09:30 05/13/25 09:29 Atorvastatin Calcium (LIPItor 20MG) 20 mg DAILY PO 04/14/25 09:00 05/14/25 08:59 04/15/25 08:37 20 MG Cefepime HCl (MAXipime 1 GM vial) 1 gm Q8H IVPB 04/13/25 13:30 04/23/25 13:29 04/15/25 12:16 1 GM Ceftriaxone Sodium (Rocephin 2gm Inj) 2 gm Q24H IVPB 04/12/25 15:30 04/13/25 13:21 DC 04/12/25 16:41 2 GM Dextrose (D50w) 50 ml AD PRN IV HYPOGLYCEMIA PROTOCOL 04/12/25 15:30 05/12/25 15:29 Famotidine (Pepcid 20mg Tab) 20 mg BID PO 04/13/25 21:00 05/13/25 20:59 04/15/25 08:37 20 MG Glucagon (Glucagon 1mg Kit) 1 mg AD PRN IM HYPOGLYCEMIA PROTOCOL 04/12/25 15:30 05/12/25 15:29 Heparin Sodium (Porcine) (HEParin 5,000 UNIT VIAL) 5,000 unit Q12H SQ 04/15/25 09:00 05/15/25 08:59 04/15/25 10:01 5,000 UNIT Hydrochlorothiazide (hydroCHLOROthiazide 25MG) 25 mg DAILY PO 04/14/25 09:00 05/14/25 08:59 04/15/25 08:37 25 MG Hydromorphone HCl (DiLAUDid 1MG INJ) 0.5 mg Q4H PRN IV SEVERE PAIN (7-10) 04/13/25 09:30 04/18/25 09:29 04/15/25 12:31 0.5 MG Insulin Glargine (LANtus 100 UNITS/ML 10 ML VIAL) 10 units HS SQ 04/13/25 21:00 04/15/25 12:39 DC 04/14/25 22:12 10 UNITS Insulin Glargine (LANtus 100 UNITS/ML 10 ML VIAL) 15 units HS SQ 04/15/25 21:00 05/15/25 20:59 Insulin Human Regular (humuLIN R 100 UNIT/ML 3ML) INSULIN SLIDING SCAL... ACHS SQ 04/12/25 16:30 05/12/25 16:29 04/15/25 12:14 5 UNIT Losartan Potassium (CozAAR 100MG TAB) 100 mg DAILY PO 04/14/25 09:00 05/14/25 08:59 04/15/25 08:37 100 MG Magnesium Sulfate 50 ml @ 0 mls/hr PROTOCOL PRN IV MAGNESIUM PROTOCOL 04/12/25 15:30 05/12/25 15:29 Metronidazole/ Sodium Chloride 100 ml @ 100 mls/hr Q8H6 IVPB 04/12/25 18:00 04/22/25 17:59 04/15/25 06:13 100 MLS/HR Metronidazole/ Sodium Chloride 100 ml @ 100 mls/hr Q8H6 IVPB 04/12/25 22:00 04/12/25 17:32 DC Miscellaneous Medication (Valsartan/ Hydrochlorothiazide (Valsartan-Hctz 160-25 mg Tab)) 1 tab DAILY PO 04/14/25 09:00 04/13/25 09:23 DC Morphine Sulfate (morPHINE 2MG SYG) 2 mg Q4H PRN IV MODERATE PAIN (4-6) 04/13/25 09:30 04/20/25 09:29 04/14/25 22:13 2 MG Potassium Chloride 100 ml @ 100 mls/hr AD PRN IV POTASSIUM PROTOCOL 04/12/25 15:30 05/12/25 15:29 Potassium Chloride (K-Dur/Klor-Con 20meq) 20 meq AD PRN PO POTASSIUM PROTOCOL 04/12/25 15:30 05/12/25 15:29 Potassium Chloride (KCl 10% Elixir 20meq/15ml) 20 meq AD PRN PO POTASSIUM PROTOCOL 04/12/25 15:30 05/12/25 15:29 Vancomycin HCl 250 ml @ 125 mls/hr Q12H IV 04/13/25 16:00 04/23/25 15:59 04/15/25 04:36 125 MLS/HR Vancomycin HCl (Vancomycin Protocol) 1 each AD IV 04/13/25 13:30 04/27/25 13:29 DIAGNOSTICS / RADIOLOGY: [address] [address] IMAGING REPORT Signed PATIENT: TESS VELASQUEZ MR#: [id number] : 1980 SEX: M AGE: 44 LOCATION: [facility] ORDER 1323 STATUS: REG ER REPORT#: [id number] SERVICE 1321 REASON: perirectal abscess ORDERING PHYSICIAN: SHAMAR SERRANO PROCEDURE: PELVIS W - CT PELVIS W/CONTRAST Exam Type: CT pelvis with contrast Clinical Information: perirectal abscess Technique: Routine helical scanning at 5mm collimation through the abdomen and pelvis was performed. Sagittal and coronal reformations were also done. Findings: Left posterior perirectal well-circumscribed abscess measuring 3.1 cm. The visualized pelvic bowel loops are unremarkable. No free fluid or fluid collections of the pelvis are seen otherwise. The pelvic viscera are normal in CT appearance. The perirectal fat planes are clear. Bilateral chronic pars interarticularis fractures at L5 with grade 1 anterolisthesis. IMPRESSION: Left posterior perirectal well-circumscribed abscess measuring 3.1 cm. DICTATED BY: JUANI LEE MD DATE: 04/12/251419 ELECTRONICALLY SIGNED BY: JUANI LEE MD DATE: 04/12/251423 ASSESSMENT: Left perirectal abscess measuring 3.1 cm, s/p I & D on 04/14/25 POA Elevated inflammatory markers, ESR, CRP POA Hyperglycemia with uncontrolled type 2 diabetes mellitus A1c 10.7%, POA Hypertension, POA Hypoalbuminemia, POA Hyperlipidemia, POA PLAN: The patient remains admitted on the medical surgical floor. Left perirectal abscess measuring 3.1 cm, s/p I & D on 04/14/25 POA Elevated inflammatory markers, ESR, CRP POA * Incision and drainage was done by Dr. Mejía on 04/14/25. Wound cultures, aerobic and anaerobic results are pending. * Continue with broad-spectrum IV antibiotics cefepime, vancomycin, and metronidazole. * Blood Culture showed no growth after 48 hours. * Follow Infectious Disease recommendations. * Monitor for fever. Hyperglycemia with uncontrolled type 2 diabetes mellitus A1c 10.7%, POA * Increase insulin Lantus to 15 units HS. * A.c. and HS glucometer and insulin sliding scale * Continue with diabetic diet Hypertension, POA * Continue with losartan 100 mg daily. * Continue with hydrochlorothiazide 25 mg daily. Hyperlipidemia, POA * Continue with atorvastatin 20 mg p.o. daily. DVT prophylaxis: Heparin 5000 IU q.12h. GI prophylaxis: Famotidine 20 mg p.o. b.i.d. P.r.n. medications * Hydromorphone 0.5 mg q.4 for severe pain (7-10) * Morphine 2 mg q.4 for moderate pain (4-6) * Tylenol 650 mg q.4 for mild pain (1-4) * Tylenol 650 mg for fever A.m. labs, CBC, BMP Assessment and plan was discussed in detail and the patient. The patient verbalizes understanding. Further orders per hospitalization course. ATTESTATION BY PHYSICIAN I have seen and examined the patient. I reviewed the documentation, medical decision making, and treatment plan as noted by the resident provider above. I agree with the findings and plan of care. Hamilton Guerra MD, MANALI MD Apr 15, 2025 13:41
[2025-04-15] MEDS: VANCOMYCIN 1.75 GM/250 ML BAG 250 ML IV SCH (16:21)
[2025-04-15] MEDS: INSULIN GLARgine 100 UNITS/ML 10 ML VIAL SQ SCH (20:55)
[2025-04-15] MEDS: ZINC OXIDE OINT 56.7 GM TP SCH (20:55)
--- NOTE | 2025-04-16 02:53 | NUR ---
nurse note patient alert and oriented times 4. at bedside. plan of care discussed with them and they verbalized understanding. patient is ambulatory to the restroom. I washed his perirectal wound once with soap and water and his washed it again tonight and we placed gauze, and an abdominal pad to contain his minimal serosanguineous drainage. Patient has slept about 6 hours tonight. He only has mild to moderate pain on the wound during wound dressing change. call light within reach, bed alarm on, 2 side rails up. will continue to monitor patient.
[2025-04-16 03:34] VITALS: BP 131/81; PULSE 87; RESP 20; TEMP 98
[2025-04-16 05:33] LABS: BASOPHILS # (AUTO) 0.09 K/uL (0.00-0.20); BASOPHILS % (AUTO) 0.8 % (0.0-5.0); EOSINOPHILS # (AUTO) 0.55 K/uL (0.00-0.70); HEMATOCRIT 38.9 % (42-54); IMMATURE GRANULOCYTE ABSOLUTE 0.26 K/uL (0-1); LYMPHOCYTES # (AUTO) 3.6 K/uL (1.0-4.8); LYMPHOCYTES % (AUTO) 32.8 % (21.0-51.0); MEAN CORPUSCULAR HGB CONC 33.4 g/dL (32.0-36.0); MEAN CORPUSCULAR VOLUME 86.6 fL (79-99); MONOCYTES % (AUTO) 8.9 % (3.0-13.0); NEUTROPHILS # (AUTO) 5.5 K/uL (1.8-7.7); NEUTROPHILS % (AUTO) 50.1 % (40.0-77.0); PLATELET COUNT (AUTO) 238 K/uL (130-400); RED BLOOD CELL COUNT(AUTO) 4.49 MIL/uL (4.50-6.20); RED CELL DISTRIBUTION WIDTH 12.3 % (11.0-15.5)
[2025-04-16 05:48] LABS: CREATININE 0.8 mg/dL (0.5-1.3); POTASSIUM 4.3 mmol/L (3.5-5.1)
[2025-04-16] MEDS ORDERED: hydroMORPHone 0.5 MG SYG (0.5MG/0.5ML) IV PRN (07:30)
[2025-04-16 08:00] VITALS: O2SAT 97
[2025-04-16 08:30] VITALS: BP 125/94; PULSE 75; RESP 18; TEMP 97.8
--- NOTE | 2025-04-16 08:47 | PN ---
INFECTIOUS DISEASE FOLLOWUP NOTE DATE OF SERVICE: 04/15/2025 SUBJECTIVE: The patient is seen. No fever, no chills. Pain to the perineal area is well controlled. Denies depression, no suicidal ideation. No nausea, vomiting, abdominal pain or diarrhea. No dysuria, hematuria or urinary frequency. No rashes or itchiness. PHYSICAL EXAMINATION: VITAL SIGNS: Temperature 98.7. EYES: No icterus. Pupils are equal and reactive. HENT: No oral thrush seen. Moist oral mucosa. NECK: Supple. No JVD or thyromegaly. LUNGS: Good air entry. No rales. No rhonchi. CARDIOVASCULAR: S1, S2 regular. No murmur heard. ABDOMEN: Full. soft and nontender. Bowel sounds are present. CENTRAL NERVOUS SYSTEM: Awake, alert, oriented x 3. No focal deficits. SKIN: No rashes, no itchiness. LYMPHATIC: No peripheral lymphadenopathy. MUSCULOSKELETAL: No joint swelling, erythema or tenderness. BACK: No deformity or pressure ulcer. RECTAL: left perirectal area . LABORATORY DATA: Blood culture growing Gram-positive cocci in clusters. Perirectal wound culture pending. ASSESSMENT: A 44-year-old male presented with perirectal pain and swelling. CURRENT PROBLEMS: Include: * Rectal abscess, status post incision and drainage. * Diabetes mellitus. * Obesity. * Gram-positive bacteremia. PLAN: * Continue vancomycin. * Continue cefepime. * Continue Flagyl. * Follow up cultures. * Continue pain management. * Continue antidiabetic. * Continue nutritional support. TID: [id number] RECEIPT: [id number]
--- NOTE | 2025-04-16 10:46 | PN ---
[facility] PROGRESS NOTE Date of Service: Apr 16, 2025 Time of Service: 10:37 SUBJECTIVE: The patient is a 44-year-old male with a history of type 2 diabetes mellitus and hypertension who presented to the emergency department on April 12 with complaints of right buttock pain. He noticed a bump seven days ago and experienced a fever of 101F. Over the course of a week, he observed worsening pain and some purulent discharge. The pain became so severe that he sought emergency care. A CT scan revealed a left posterior perirectal abscess measuring 3.1 cm. Laboratory results indicated a uncontrolled hyperglycemia with hemoglobin A1c of 10.7, whole blood glucose of 214, and an albumin level of 2.9. The patient was admitted for management of the perirectal abscess. 04/13/25: Upon bedside examination, the patient appeared hemodynamically stable and denied having any fever, chills, abdominal pain, dizziness, or hematochezia. His glucose levels improved to 159 from 214. Inflammatory markers are elevated, ESR 35, and CRP 8.6. Other remarkable labs, albumin 2.9, corrected calcium 9.2. Blood culture showed no growth in 24 hours. He was started on cefepime, vancomycin, and metronidazole for broad-spectrum coverage following recommendations from the Infectious Disease team. The general surgeon plans to perform an incision and drainage procedure tomorrow morning. Further assessment and plan discussed below. 04/14/25 patient was seen and examined. Case discussed with RN. Family was by the bedside. He was doing much better denies any fever or chills but does have some pain. He was anxious to go home. We are waiting for wound culture results to come back. We will continue broad-spectrum IV antibiotics per Infectious Disease recommendations. 04/15/25: The patient was examined at the bedside today and reports significant improvement in gluteal pain. He underwent incision and drainage, as well as debridement of necrotic tissue from a perirectal abscess by Dr. Mejía yesterday, on April 14, 2025. There were no complications following the procedure. He is currently receiving cefepime, vancomycin, and metronidazole. His blood sugar levels have been slightly elevated, with a recent reading of 182. We will increase the Lantus dosage to 15 units at bedtime. Other lab results are unremarkable. We will continue administering IV antibiotics and daily dressings. Upon examination, gluteal cleft rash was observed, we will order zinc oxide topical application. We will follow the recommendations from Surgery and Infectious Disease teams. Further assessment and planning are discussed below. 04/16/2025: The patient was examined at bedside today, and there were no acute episodes overnight. Her blood sugar levels have been consistently in the 200s, even after increasing her Lantus dosage to 15 units. When asked, the patient mentioned that he had a taco yesterday. According to his , the blood sugar levels at home are in the 120s when she takes Mounjaro and metformin. The patient was advised to adhere to a strict carbohydrate-controlled diet. She denies experiencing any pain or discomfort at this time. The reported that the packing at I and D site was completely soaked yesterday, but today it is slightly dry. Lab results indicate that the WBC increased from 10.0 to 11.0, while other laboratory results are unremarkable. The culture showed 1+ Gram-negative rods, sensitivity pending. He is currently receiving vancomycin, cefepime, and metronidazole, following recommendations from Infectious Disease. We are awaiting further recommendations from the surgery team and Infectious Disease. A detailed assessment and plan are discussed below. REVIEW OF SYSTEMS CONSTITUTIONAL: Subjective fever at home, no chills, or night sweats. No unintentional weight loss reported. NEUROLOGICAL: Denies headache, amaurosis fugax, motor weakness, sensory deficit, vertigo/spinning sensation, gait abnormalities, or tremors. ENT: No hearing loss, otalgia, otorrhea, rhinitis, rhinorrhea, hoarseness, or sore throat. CARDIOVASCULAR: Denies any exertional angina, dyspnea on exertion, orthopnea, paroxysmal nocturnal dyspnea, palpitations, life-threatening arrhythmias, claudication. PULMONARY: Denies any shortness of breath, cough, phlegm/sputum, hemoptysis, pleuritic chest pain. SLEEP: Denies morning headaches, daytime somnolence or napping. Denies difficulty falling asleep, staying asleep, waking from sleep. Denies knowledge of snoring. GASTROINTESTINAL: Denies any type of dysphagia to either liquids or solids. Denies nausea, vomiting, pyrosis, early satiety, abdominal pain, diarrhea, constipation, or changes in stool consistency or caliber. Denies coffee-ground emesis, hematemesis, hematochezia, or melanotic stools. GENITOURINARY: Denies frequency, urgency, nocturia, hematuria or incontinence (Storage/Irritative symptoms.) Low urinary stream, straining to void, urinary intermittency or hesitancy, splitting of the voiding stream, terminal dribbling. ENDOCRINOLOGIC: Denies polyuria, polydipsia, polyphagia or heat/cold intolerances. HEMATOLOGIC: Denies thrombophilia/previous clots, or coagulopathy/bleeding disorders. ONCOLOGIC: Denies personal history of malignancy. DERMATOLOGIC: Denies rashes or pruritus. PSYCHIATRIC: Denies any suicidal or homicidal ideation. Denies hallucinations. PHYSICAL EXAM GENERAL APPEARANCE: The patient is awake, alert, and oriented, in no acute cardiopulmonary distress. NEUROLOGICAL: Cranial nerves II-XII grossly intact. Motor is 5/5 in bilateral upper and lower extremities proximal to distal. No sensory deficits. HEENT: Face is symmetric. Pupils are equal and reactive. Extraocular movements are intact. NECK: Supple. No JVD. No thyromegaly. No submental, submandibular, pre- /postauricular, occipital or supraclavicular lymphadenopathy. CHEST: Normal chest expansion. No Telemetry. LUNGS: Absence of any rales, rhonchi or any wheezing. CARDIOVASCULAR: Regular. S1 and S2 normal. No appreciable rubs, murmurs or gallops. ABDOMEN: Soft, nontender, and nondistended. There is no rebound, voluntary guarding, or rigidity. : open incision and drainage wound over left Ailyn rectal region, packing in placed, gluteal cleft rash was noted: Non-edematous and not cyanotic. No clubbing. Good capillary refill. SKIN: No skin breakdown. Vital Signs (last 8hr) Date Time Temp Pulse Resp B/P (MAP) Pulse Ox O2 Delivery O2 Flow Rate FiO2 04/16/25 08:30 97.9 75 18 125/94 97 Room Air 04/16/25 03:34 98.1 87 20 131/81 96 Room Air LABS: Laboratory: Test 04/16/25 05:14 04/16/25 05:07 04/15/25 15:00 Range/Units White Blood Count 11.0 H 4.8-10.8 K/uL Red Blood Count 4.49 L 4.50-6.20 MIL/uL Hemoglobin 13.0 L 14.0-18.0 g/dL Hematocrit 38.9 L 42-54 % Mean Corpuscular Volume 86.6 79-99 fL Mean Corpuscular Hemoglobin 29.0 27.0-33.0 pg Mean Corpuscular Hemoglobin Concent 33.4 32.0-36.0 g/dL Red Cell Distribution Width 12.3 11.0-15.5 % Platelet Count 238 130-400 K/uL Mean Platelet Volume 10.4 7.5-10.5 fL Immature Granulocyte % (Auto) 2.4 H 0-1 % Neutrophils (%) (Auto) 50.1 40.0-77.0 % Lymphocytes (%) (Auto) 32.8 21.0-51.0 % Monocytes (%) (Auto) 8.9 3.0-13.0 % Eosinophils (%) (Auto) 5.0 0.0-8.0 % Basophils (%) (Auto) 0.8 0.0-5.0 % Neutrophils # (Auto) 5.5 1.8-7.7 K/uL Lymphocytes # (Auto) 3.6 1.0-4.8 K/uL Monocytes # (Auto) 1.0 0.1-1.0 K/uL Eosinophils # (Auto) 0.55 0.00-0.70 K/uL Basophils # (Auto) 0.09 0.00-0.20 K/uL Absolute Immature Granulocyte (auto 0.26 0-1 K/uL Nucleated Red Blood Cells 0.0 0.0-0.19 % Sodium Level 138 136-145 mmol/L Potassium Level 4.3 3.5-5.1 mmol/L Chloride Level 103 101-111 mmol/L Carbon Dioxide Level 29 21-32 mmol/L Blood Urea Nitrogen 16 7-18 mg/dL Creatinine 0.8 0.5-1.3 mg/dL Glomerular Filtration Rate Calc 111 >90 mL/min Random Glucose 219 H 70-105 mg/dL Total Calcium 8.6 8.5-10.1 mg/dL Whole Blood Glucose 196 H 70-110 MG/DL Vancomycin Level Trough 8.0 L 10.0-20.0 UG/ML Current Medications Medications (Trade) Dose Ordered Sig/Daria Route PRN Reason Start Time Stop Time Status Last Admin Dose Admin Acetaminophen (TYLenol 325MG TAB) 650 mg Q4H PRN PO MILD PAIN (1-3) 04/13/25 09:30 05/13/25 09:29 04/14/25 09:23 650 MG Acetaminophen (TYLenol 325MG TAB) 650 mg Q6H PRN PO TEMPERATURE GREATER THAN 101.5 04/13/25 09:30 05/13/25 09:29 Atorvastatin Calcium (LIPItor 20MG) 20 mg DAILY PO 04/14/25 09:00 04/16/25 07:07 DC 04/15/25 08:37 20 MG Atorvastatin Calcium (LIPItor 20MG) 20 mg HS PO 04/16/25 21:00 05/14/25 08:59 Cefepime HCl (MAXipime 1 GM vial) 1 gm Q8H IVPB 04/13/25 13:30 04/23/25 13:29 04/16/25 05:22 1 GM Ceftriaxone Sodium (Rocephin 2gm Inj) 2 gm Q24H IVPB 04/12/25 15:30 04/13/25 13:21 DC 04/12/25 16:41 2 GM Dextrose (D50w) 50 ml AD PRN IV HYPOGLYCEMIA PROTOCOL 04/12/25 15:30 05/12/25 15:29 Famotidine (Pepcid 20mg Tab) 20 mg BID PO 04/13/25 21:00 05/13/25 20:59 04/16/25 08:32 20 MG Glucagon (Glucagon 1mg Kit) 1 mg AD PRN IM HYPOGLYCEMIA PROTOCOL 04/12/25 15:30 05/12/25 15:29 Heparin Sodium (Porcine) (HEParin 5,000 UNIT VIAL) 5,000 unit Q12H SQ 04/15/25 09:00 05/15/25 08:59 04/16/25 08:42 5,000 UNIT Hydrochlorothiazide (hydroCHLOROthiazide 25MG) 25 mg DAILY PO 04/14/25 09:00 05/14/25 08:59 04/16/25 08:32 25 MG Hydromorphone HCl (DiLAUDid 0.5MG INJ) 0.5 mg Q4H PRN IV SEVERE PAIN (7-10) 04/16/25 07:30 04/18/25 09:29 Hydromorphone HCl (DiLAUDid 1MG INJ) 0.5 mg Q4H PRN IV SEVERE PAIN (7-10) 04/13/25 09:30 04/16/25 07:09 DC 04/15/25 12:31 0.5 MG Insulin Glargine (LANtus 100 UNITS/ML 10 ML VIAL) 10 units HS SQ 04/13/25 21:00 04/15/25 12:39 DC 04/14/25 22:12 10 UNITS Insulin Glargine (LANtus 100 UNITS/ML 10 ML VIAL) 15 units HS SQ 04/15/25 21:00 05/15/25 20:59 04/15/25 20:55 15 UNITS Insulin Human Regular (humuLIN R 100 UNIT/ML 3ML) INSULIN SLIDING SCAL... ACHS SQ 04/12/25 16:30 05/12/25 16:29 04/16/25 05:22 2 UNIT Losartan Potassium (CozAAR 100MG TAB) 100 mg DAILY PO 04/14/25 09:00 05/14/25 08:59 04/16/25 08:32 100 MG Magnesium Sulfate 50 ml @ 0 mls/hr PROTOCOL PRN IV MAGNESIUM PROTOCOL 04/12/25 15:30 05/12/25 15:29 Metronidazole/ Sodium Chloride 100 ml @ 100 mls/hr Q8H6 IVPB 04/12/25 18:00 04/22/25 17:59 04/16/25 05:22 100 MLS/HR Metronidazole/ Sodium Chloride 100 ml @ 100 mls/hr Q8H6 IVPB 04/12/25 22:00 04/12/25 17:32 DC Miscellaneous Medication (Valsartan/ Hydrochlorothiazide (Valsartan-Hctz 160-25 mg Tab)) 1 tab DAILY PO 04/14/25 09:00 04/13/25 09:23 DC Morphine Sulfate (morPHINE 2MG SYG) 2 mg Q4H PRN IV MODERATE PAIN (4-6) 04/13/25 09:30 04/20/25 09:29 04/14/25 22:13 2 MG Multi-Ingredient Ointment (Dr. Arellano'S Diaper) apply BID TP 04/15/25 21:00 05/15/25 20:59 04/16/25 08:42 1 APPL Potassium Chloride 100 ml @ 100 mls/hr AD PRN IV POTASSIUM PROTOCOL 04/12/25 15:30 05/12/25 15:29 Potassium Chloride (K-Dur/Klor-Con 20meq) 20 meq AD PRN PO POTASSIUM PROTOCOL 04/12/25 15:30 05/12/25 15:29 Potassium Chloride (KCl 10% Elixir 20meq/15ml) 20 meq AD PRN PO POTASSIUM PROTOCOL 04/12/25 15:30 05/12/25 15:29 Vancomycin HCl 250 ml @ 125 mls/hr Q12H IV 04/13/25 16:00 04/15/25 15:22 DC 04/15/25 04:36 125 MLS/HR Vancomycin HCl 250 ml @ 125 mls/hr Q8H IV 04/15/25 15:30 04/16/25 07:07 DC 04/16/25 06:20 125 MLS/HR Vancomycin HCl 500 ml @ 250 mls/hr Q12H IV 04/16/25 19:30 04/26/25 19:29 Vancomycin HCl (Vancomycin Protocol) 1 each AD IV 04/13/25 13:30 04/27/25 13:29 DIAGNOSTICS / RADIOLOGY: [place] [id number] IMAGING REPORT Signed PATIENT: TESS VELASQUEZ MR#: [id number] : 1980 SEX: M AGE: 44 LOCATION: [facility] ORDER 1323 STATUS: REG REPORT#: [id number] SERVICE 1321 REASON: perirectal abscess ORDERING PHYSICIAN: SHAMAR SERRANO PROCEDURE: PELVIS W - CT PELVIS W/CONTRAST Exam Type: CT pelvis with contrast Clinical Information: perirectal abscess Technique: Routine helical scanning at 5mm collimation through the abdomen and pelvis was performed. Sagittal and coronal reformations were also done. Findings: Left posterior perirectal well-circumscribed abscess measuring 3.1 cm. The visualized pelvic bowel loops are unremarkable. No free fluid or fluid collections of the pelvis are seen otherwise. The pelvic viscera are normal in CT appearance. The perirectal fat planes are clear. Bilateral chronic pars interarticularis fractures at L5 with grade 1 anterolisthesis. IMPRESSION: Left posterior perirectal well-circumscribed abscess measuring 3.1 cm. DICTATED BY: JUANI LEE MD DATE: 04/12/251419 ELECTRONICALLY SIGNED BY: JUANI LEE MD DATE: 04/12/251423 RUN DATE: 04/16/25 [facility] PAGE 1 RUN TIME: [id number] [address], [place] [address] Department of Laboratories CLIA # [id number] Mail Teller: Nick Silva DO Specimen Report -- PATIENT: TESS VELASQUEZ ACCT: [id number] LOC: [facility] U: [id number] AGE/SX: 44/M ROOM: [facility] RE04/12/[address]: NIK LAWSON MD : 1980 BED: 1 DIS: STATUS: ADM IN TLOC: SPEC: [id number] FELIPE: 04/14/25 STATUS: RES REQ: [id number] RECD: 04/14/[address]: SHAMAR SERRANO SOURCE: BLOOD ENTR: 04/14/25 DEA ELMORE: [facility]: BLOOD JOSE MCGHEE MD ORDERED: AERO ID & SENS Procedure Result Lala Date-Time AEROBIC ID & SENSITIVITIES Preliminary 04/16/25-1333 [facility] DAY 1: NO GROWTH Test(s) performed by: [facility] [address] [place] [address] @ [facility] Test Performed at: [facility] [address], [place], [place] Medical Mortgage Loan Coordinator: Elliott Romero D.O. RUN DATE: 04/16/25 [facility] PAGE 1 RUN TIME: [phone] [address] Department of Laboratories [place] # [id number] Mail Teller: Nick Silva DO Specimen Report PATIENT: TESS VELASQUEZ ACCT: [id number] LOC: [facility] U: [id number] AGE/SX: 44/M ROOM: [facility] RE04/12/[address]: NIK LAWSON MD : 1980 BED: 1 DIS: STATUS: ADM IN TLOC: SPEC: [id number] FELIPE: 04/14/25 STATUS: RES REQ: [id number] RECD: 04/14/25 [facility] DR: LUCY HUMMEL MD SOURCE: PERIRECTAL ENTR: 04/14/[address]: ADWOA HOWE MD SPDESC: ABSCESS NIK LAWSON MD, JESUS MD ORDERED: MIGUEL CULTURE, AEROBIC CULTURE COMMENTS: Has specimen been collected/obtained? Y Specimen Comment: PERIANAL ABSCES Specimen Comment: PERIANAL ABSCESS Has specimen been collected/obtained? Y Specimen Comment: PERIANAL ABSCES Specimen Comment: PERIANAL ABSCESS Has specimen been collected/obtained? Y Specimen Comment: PERIANAL ABSCES Specimen Comment: PERIANAL ABSCESS Has specimen been collected/obtained? Y Specimen Comment: PERIANAL ABSCES Specimen Comment: PERIANAL ABSCESS Has specimen been collected/obtained? Y Specimen Comment: PERIANAL ABSCES Specimen Comment: PERIANAL ABSCESS ------- ----- Procedure Result Lala Date-Time ANAEROBIC CULTURE Preliminary 04/16/25-811 [facility] DESCRIPTION: REPORT 1: NO ANAEROBES AT 16-23 HOURS; STUDIES TO CONTINUE Test(s) performed by: [facility] [address] [place] [address] AEROBIC CULTURE Preliminary 04/16/25-811 [facility] DESCRIPTION: REPORT 1: 1+ GRAM NEGATIVE RODS IDENTIFICATION AND SENSITIVITY TO FOLLOW @ [facility] Test Performed at: [facility] [address], [place], [place] Medical Mortgage Loan Coordinator: Elliott Romero D.O. END OF REPORT RUN DATE: 04/16/25 [facility] PAGE 1 RUN TIME: [phone] [address] Department of Laboratories [facility] # [id number] Mail Teller: Nick Silva DO Specimen Report ----- ------- PATIENT: TESS VELASQUEZ ACCT: [id number] LOC: [facility] U: [id number] AGE/SX: 44/M ROOM: 312 RE04/12/[address]: NIK LAWSON MD : 1980 BED: 1 DIS: STATUS: ADM IN TLOC: SPEC: [id number] FELIPE: 04/14/25 STATUS: RES REQ: [id number] RECD: 04/14/25 [facility] DR: LUCY HUMMEL MD SOURCE: OTHER SOUR ENTR: 04/14/[address] [facility] [address]: ADWOA HOWE MD SPDC: OTHER NIK LAWSON MD, JESUS MD ORDERED: AEROBIC CULTURE COMMENTS: Has specimen been collected/obtained? Y Specimen Comment: NECROTIC TISSUE FOR CULTURE Has specimen been collected/obtained? Y Specimen Comment: NECROTIC TISSUE FOR CULTURE Procedure Result Lala Date-Time ----- ------- AEROBIC CULTURE Preliminary 04/16/25 [facility] DESCRIPTION: REPORT 1: NO GROWTH AT 16-23 HOURS; STUDIES TO CONTINUE Test(s) performed by: [facility] [address] [place] [address] @ [facility] Test Performed at: [facility] [address], [place], [place] Medical Mortgage Loan Coordinator: Elliott Romero D.O. ASSESSMENT: Left perirectal abscess measuring 3.1 cm, s/p I & D, cultures + Gram-negative rods on 04/14/25 POA Elevated inflammatory markers, ESR, CRP POA Hyperglycemia with uncontrolled type 2 diabetes mellitus A1c 10.7%, POA Hypertension, POA Hypoalbuminemia, POA Hyperlipidemia, POA PLAN: The patient remains admitted on the medical surgical floor. Left perirectal abscess measuring 3.1 cm, s/p I & D, cultures + Gram-negative rods on 04/14/25 POA Elevated inflammatory markers, ESR, CRP POA * Incision and drainage was done by Dr. Mejía on 04/14/25. Wound cultures showed 1+ Gram-negative rods. Continue with broad-spectrum IV antibiotics cefepime, vancomycin, and metronidazole. * Preliminary Blood Culture on 04/14 showed no growth. * Follow Infectious Disease recommendations. * Monitor for fever. Hyperglycemia with uncontrolled type 2 diabetes mellitus A1c 10.7%, POA * Increase insulin Lantus to 20 units HS. * A.c. and HS glucometer and insulin sliding scale * The patient was educated on strict adherence to carbohydrate restricted diet. Hypertension, POA * Continue with losartan 100 mg daily. * Continue with hydrochlorothiazide 25 mg daily. Hyperlipidemia, POA * Continue with atorvastatin 20 mg p.o. daily. DVT prophylaxis: Heparin 5000 IU q.12h. GI prophylaxis: Famotidine 20 mg p.o. b.i.d. P.r.n. medications * Hydromorphone 0.5 mg q.4 for severe pain (7-10) * Morphine 2 mg q.4 for moderate pain (4-6) * Tylenol 650 mg q.4 for mild pain (1-4) * Tylenol 650 mg for fever We are currently pending on surgery and Infectious Disease recommendations. A.m. labs, CBC, BMP Assessment and plan was discussed in detail and the patient. The patient verbalizes understanding. Further orders per hospitalization course. ATTESTATION BY PHYSICIAN I have seen and examined the patient. I reviewed the documentation, medical decision making, and treatment plan as noted by the resident provider above. I agree with the findings and plan of care. Hamilton Guerra MD, MANALI MD Apr 16, 2025 10:46
[2025-04-16 12:22] VITALS: BP 159/90; PULSE 75; RESP 18; TEMP 97.8
--- NOTE | 2025-04-16 18:22 | PN ---
INFECTIOUS DISEASE PROGRESS NOTE Date of Service: Apr 16, 2025 SUBJECTIVE: This is a 44 year old male patient who was seen and examined at bedside in room 312. Patient is awake, alert and oriented x3. Patient is status post incision and drainage of perirectal abscess on 04/14/2025. The preliminary wound cultures results is growing Gram-negative rods. We will follow up on the final culture results. No fever, temperature is 97.9. We will continue vancomycin, cefepime and metronidazole. No reports of nausea or vomiting. PHYSICAL EXAM EYES: Anicteric. Pupils equal and reactive. HENT: No oral thrush seen, moist Oral mucosa NECK: Supple, no JVD or thyromegaly. LUNGS: Good air entry. No rales, no rhonchi. CARDIOVASCULAR: S1, S2 regular. No murmur heard. ABDOMEN: Soft, non tender, bowel sounds present, no organomegaly CENTRAL NERVOUS SYSTEM: Awake, alert, oriented x 3. No focal deficits. SKIN: No rashes, no swelling. LYMPHATICS: No peripheral lymphadenopathy MUSCULOSKELETAL: No joint swelling, erythema or tenderness. EXTREMITIES: No cyanosis or clubbing BACK: No deformity, no pressure ulcer. GENITOURINARY: Perirectal surgical wound, dry dressing noted. Vital Sign (Last 12 Hours) 04/16/25 04/16/25 04/16/25 08:00 08:30 12:22 Temp 97.9 97.9 Pulse 75 75 Resp 18 18 B/P (MAP) 125/94 159/90 Pulse Ox 97 97 96 O2 Delivery Room Air* Room Air Room Air O2 Flow Rate 0 FiO2 21 Intake & Output (last 24hrs) 04/15/25 04/15/25 04/16/25 15:00 23:00 07:00 Intake Total 600 ml 650 ml 1100.0 ml Output Total 500 ml 900 ml Balance 600 ml 150 ml 200.0 ml LABS: Laboratory: Test 04/16/25 15:43 04/16/25 05:14 04/15/25 15:00 Range/Units Whole Blood Glucose 193 H 70-110 MG/DL White Blood Count 11.0 H 4.8-10.8 K/uL Red Blood Count 4.49 L 4.50-6.20 MIL/uL Hemoglobin 13.0 L 14.0-18.0 g/dL Hematocrit 38.9 L 42-54 % Mean Corpuscular Volume 86.6 79-99 fL Mean Corpuscular Hemoglobin 29.0 27.0-33.0 pg Mean Corpuscular Hemoglobin Concent 33.4 32.0-36.0 g/dL Red Cell Distribution Width 12.3 11.0-15.5 % Platelet Count 238 130-400 K/uL Mean Platelet Volume 10.4 7.5-10.5 fL Immature Granulocyte % (Auto) 2.4 H 0-1 % Neutrophils (%) (Auto) 50.1 40.0-77.0 % Lymphocytes (%) (Auto) 32.8 21.0-51.0 % Monocytes (%) (Auto) 8.9 3.0-13.0 % Eosinophils (%) (Auto) 5.0 0.0-8.0 % Basophils (%) (Auto) 0.8 0.0-5.0 % Neutrophils # (Auto) 5.5 1.8-7.7 K/uL Lymphocytes # (Auto) 3.6 1.0-4.8 K/uL Monocytes # (Auto) 1.0 0.1-1.0 K/uL Eosinophils # (Auto) 0.55 0.00-0.70 K/uL Basophils # (Auto) 0.09 0.00-0.20 K/uL Absolute Immature Granulocyte (auto 0.26 0-1 K/uL Nucleated Red Blood Cells 0.0 0.0-0.19 % Sodium Level 138 136-145 mmol/L Potassium Level 4.3 3.5-5.1 mmol/L Chloride Level 103 101-111 mmol/L Carbon Dioxide Level 29 21-32 mmol/L Blood Urea Nitrogen 16 7-18 mg/dL Creatinine 0.8 0.5-1.3 mg/dL Glomerular Filtration Rate Calc 111 >90 mL/min Random Glucose 219 H 70-105 mg/dL Total Calcium 8.6 8.5-10.1 mg/dL Vancomycin Level Trough 8.0 L 10.0-20.0 UG/ML ASSESSMENT: Ailyn rectal abscess status post incision and drainage and debridement on 04/14/2025. Diabetes mellitus. Obesity. PLAN: Continue vancomycin per pharmacy protocol. Continue cefepime IV. Continue metronidazole. Continue pain management. Continue antidiabetic. Continue wound care. Will follow up on the final wound culture results. We will Monitor electrolytes. This case was reviewed and discussed with my supervising physician and the above assessment and plan was formulated and agreed upon. ATTESTATION BY PHYSICIAN I have seen and examined the patient. I reviewed the documentation, medical decision making, and treatment plan as noted by the mid-level provider above. I agree with the findings and plan of care. ADWOA HOWE MD, [facility] Apr 16, 2025 18:22
[2025-04-16 19:40] VITALS: O2SAT 94
[2025-04-16] MEDS: VANCOMYCIN 2GM/500 ML BAG 500 ML IV SCH (19:51)
[2025-04-16] MEDS: atorVAStatin 20 MG TABLET PO SCH (20:46)
[2025-04-16] MEDS: INSULIN GLARgine 100 UNITS/ML 10 ML VIAL SQ SCH (20:53)
[2025-04-16 22:25] VITALS: BP 120/71; PULSE 84; RESP 19; TEMP 97.7
[2025-04-17] VITALS (8 sets, daily range): BP systolic 120–154; BP diastolic 65–88; PULSE 67–81; RESP 18–19; TEMP 97.4–98; O2SAT 93–94
[2025-04-17 06:46] LABS: BASOPHILS # (AUTO) 0.09 K/uL (0.00-0.20); BASOPHILS % (AUTO) 0.9 % (0.0-5.0); EOSINOPHILS # (AUTO) 0.54 K/uL (0.00-0.70); EOSINOPHILS % (AUTO) 5.2 % (0.0-8.0); HEMATOCRIT 39.6 % (42-54); IMMATURE GRANULOCYTE ABSOLUTE 0.23 K/uL (0-1); LYMPHOCYTES # (AUTO) 3.5 K/uL (1.0-4.8); LYMPHOCYTES % (AUTO) 33.7 % (21.0-51.0); MEAN CORPUSCULAR HEMOGLOBIN 29.1 pg (27.0-33.0); MEAN CORPUSCULAR HGB CONC 32.6 g/dL (32.0-36.0); MEAN CORPUSCULAR VOLUME 89.4 fL (79-99); MONOCYTES # (AUTO) 0.9 K/uL (0.1-1.0); MONOCYTES % (AUTO) 8.2 % (3.0-13.0); NEUTROPHILS # (AUTO) 5.2 K/uL (1.8-7.7); NEUTROPHILS % (AUTO) 49.8 % (40.0-77.0); PLATELET COUNT (AUTO) 220 K/uL (130-400); RED BLOOD CELL COUNT(AUTO) 4.43 MIL/uL (4.50-6.20); RED CELL DISTRIBUTION WIDTH 12.6 % (11.0-15.5); WHITE BLOOD COUNT (AUTO) 10.5 K/uL (4.8-10.8)
[2025-04-17 07:17] LABS: CREATININE 0.7 mg/dL (0.5-1.3)
--- NOTE | 2025-04-17 11:52 | PN ---
INFECTIOUS DISEASE PROGRESS NOTE Date of Service: Apr 17, 2025 SUBJECTIVE: This is a 44 year old male patient who was seen and examined at bedside in room 312. Patient is awake, alert and oriented x3. Patient is status post incision and drainage of perirectal abscess on 04/14/2025. The perirectal wound cultures results came back positive for Klebsiella pneumoniae. No growth reported on the repeat blood cultures. We will repeat blood cultures today. Patient remains afebrile, temperature is 97.3 and the WBC is 10.5. We will continue vancomycin, cefepime and metronidazole. PHYSICAL EXAM EYES: Anicteric. Pupils equal and reactive. HENT: No oral thrush seen, moist Oral mucosa NECK: Supple, no JVD or thyromegaly. LUNGS: Good air entry. No rales, no rhonchi. CARDIOVASCULAR: S1, S2 regular. No murmur heard. ABDOMEN: Soft, non tender, bowel sounds present, no organomegaly. CENTRAL NERVOUS SYSTEM: Awake, alert, oriented x 3. SKIN: No rashes, no swelling. LYMPHATICS: No peripheral lymphadenopathy MUSCULOSKELETAL: No joint swelling, erythema or tenderness. EXTREMITIES: No cyanosis or clubbing BACK: No deformity, no pressure ulcer. GENITOURINARY: Perirectal surgical wound. Vital Sign (Last 12 Hours) 04/17/25 04/17/25 04/17/25 00:57 04:57 08:50 Temp 97.9 98.1 97.3 Pulse 81 75 68 Resp 19 19 18 B/P (MAP) 154/76 120/72 151/76 Pulse Ox 97 94 93 O2 Delivery Room Air Room Air Room Air Intake & Output (last 24hrs) 04/16/25 04/16/25 04/17/25 15:00 23:00 07:00 Intake Total 240 ml 240 ml 1300.0 ml Output Total 700 ml Balance -460 ml 240 ml 1300.0 ml LABS: Laboratory: Test 04/17/25 11:30 04/17/25 06:03 04/16/25 18:40 Range/Units Whole Blood Glucose 174 H 70-110 MG/DL White Blood Count 10.5 4.8-10.8 K/uL Red Blood Count 4.43 L 4.50-6.20 MIL/uL Hemoglobin 12.9 L 14.0-18.0 g/dL Hematocrit 39.6 L 42-54 % Mean Corpuscular Volume 89.4 79-99 fL Mean Corpuscular Hemoglobin 29.1 27.0-33.0 pg Mean Corpuscular Hemoglobin Concent 32.6 32.0-36.0 g/dL Red Cell Distribution Width 12.6 11.0-15.5 % Platelet Count 220 130-400 K/uL Mean Platelet Volume 10.3 7.5-10.5 fL Immature Granulocyte % (Auto) 2.2 H 0-1 % Neutrophils (%) (Auto) 49.8 40.0-77.0 % Lymphocytes (%) (Auto) 33.7 21.0-51.0 % Monocytes (%) (Auto) 8.2 3.0-13.0 % Eosinophils (%) (Auto) 5.2 0.0-8.0 % Basophils (%) (Auto) 0.9 0.0-5.0 % Neutrophils # (Auto) 5.2 1.8-7.7 K/uL Lymphocytes # (Auto) 3.5 1.0-4.8 K/uL Monocytes # (Auto) 0.9 0.1-1.0 K/uL Eosinophils # (Auto) 0.54 0.00-0.70 K/uL Basophils # (Auto) 0.09 0.00-0.20 K/uL Absolute Immature Granulocyte (auto 0.23 0-1 K/uL Nucleated Red Blood Cells 0.0 0.0-0.19 % Sodium Level 138 136-145 mmol/L Potassium Level 4.0 3.5-5.1 mmol/L Chloride Level 104 101-111 mmol/L Carbon Dioxide Level 26 21-32 mmol/L Blood Urea Nitrogen 14 7-18 mg/dL Creatinine 0.7 0.5-1.3 mg/dL Glomerular Filtration Rate Calc 115 >90 mL/min Random Glucose 168 H 70-105 mg/dL Total Calcium 8.5 8.5-10.1 mg/dL Magnesium Level 2.00 1.80-2.40 mg/dL Vancomycin Level Trough 10.3 # 10.0-20.0 UG/ML DIAGNOSIS /RADIOLOGY: SPEC: [id number] PATIENT: TESS VELASQUEZ [id number] (Continued) Procedure Result Lala Date-Time ANAEROBIC CULTURE Preliminary 04/17/25-1022 MRL COLONY DESCRIPTION: REPORT 1: NO ANAEROBES AT 16-23 HOURS; STUDIES TO CONTINUE REPORT 2: NO ANAEROBES AT 36-47 HOURS; STUDIES TO CONTINUE Test(s) performed by: [facility] [address] [facility] [address] AEROBIC CULTURE Preliminary 04/17/25-1022 MRL COLONY DESCRIPTION: REPORT 1: 1+ GRAM NEGATIVE RODS IDENTIFICATION AND SENSITIVITY TO FOLLOW REPORT 2: STUDIES TO CONTINUE KLEBSIELLA PNEUMONIAE K PNEUMO M.I.C. RX --------- ---- AZTREONAM <=4 S CEFAZOLIN <=2 S CEFTAZIDIME/AVIBACTAM <=8 S GENTAMICIN <=2 S LEVOFLOXACIN <=0.5 S AMPICILLIN/SULBACTAM <=8/4 S MEROPENEM <=1 S PIPERACILLIN/TAZOBACTAM <=8 S TRIMETHOPRIM/SUFLAMETHOXAZOLE <=2/38 S ASSESSMENT: Ailyn rectal abscess status post incision and drainage and debridement on 04/14/2025. Diabetes mellitus. Obesity. PLAN: Repeat blood cultures. Continue vancomycin per pharmacy protocol. Continue cefepime IV. Continue metronidazole. Continue pain management. Continue antidiabetic. Continue wound care. Will follow up on the final wound culture results. This case was reviewed and discussed with my supervising physician and the above assessment and plan was formulated and agreed upon. ATTESTATION BY PHYSICIAN I have seen and examined the patient. I reviewed the documentation, medical decision making, and treatment plan as noted by the mid-level provider above. I agree with the findings and plan of care. ADWOA HOWE MD, MIRTA L [facility] Apr 17, 2025 11:52
--- NOTE | 2025-04-17 13:38 | PN ---
[facility] PROGRESS NOTE Date of Service: Apr 17, 2025 Time of Service: 13:28 SUBJECTIVE: The patient is a 44-year-old male with a history of type 2 diabetes mellitus and hypertension who presented to the emergency department on April 12 with complaints of right buttock pain. He noticed a bump seven days ago and experienced a fever of 101F. Over the course of a week, he observed worsening pain and some purulent discharge. The pain became so severe that he sought emergency care. A CT scan revealed a left posterior perirectal abscess measuring 3.1 cm. Laboratory results indicated a uncontrolled hyperglycemia with hemoglobin A1c of 10.7, whole blood glucose of 214, and an albumin level of 2.9. The patient was admitted for management of the perirectal abscess. 04/13/25: Upon bedside examination, the patient appeared hemodynamically stable and denied having any fever, chills, abdominal pain, dizziness, or hematochezia. His glucose levels improved to 159 from 214. Inflammatory markers are elevated, ESR 35, and CRP 8.6. Other remarkable labs, albumin 2.9, corrected calcium 9.2. Blood culture showed no growth in 24 hours. He was started on cefepime, vancomycin, and metronidazole for broad-spectrum coverage following recommendations from the Infectious Disease team. The general surgeon plans to perform an incision and drainage procedure tomorrow morning. Further assessment and plan discussed below. 04/14/25 patient was seen and examined. Case discussed with RN. Family was by the bedside. He was doing much better denies any fever or chills but does have some pain. He was anxious to go home. We are waiting for wound culture results to come back. We will continue broad-spectrum IV antibiotics per Infectious Disease recommendations. 04/15/25: The patient was examined at the bedside today and reports significant improvement in gluteal pain. He underwent incision and drainage, as well as debridement of necrotic tissue from a perirectal abscess by Dr. Mejía yesterday, on April 14, 2025. There were no complications following the procedure. He is currently receiving cefepime, vancomycin, and metronidazole. His blood sugar levels have been slightly elevated, with a recent reading of 182. We will increase the Lantus dosage to 15 units at bedtime. Other lab results are unremarkable. We will continue administering IV antibiotics and daily dressings. Upon examination, gluteal cleft rash was observed, we will order zinc oxide topical application. We will follow the recommendations from Surgery and Infectious Disease teams. Further assessment and planning are discussed below. 04/16/2025: The patient was examined at bedside today, and there were no acute episodes overnight. Her blood sugar levels have been consistently in the 200s, even after increasing her Lantus dosage to 15 units. When asked, the patient mentioned that he had a taco yesterday. According to his , the blood sugar levels at home are in the 120s when she takes Mounjaro and metformin. The patient was advised to adhere to a strict carbohydrate-controlled diet. She denies experiencing any pain or discomfort at this time. The reported that the packing at I and D site was completely soaked yesterday, but today it is slightly dry. Lab results indicate that the WBC increased from 10.0 to 11.0, while other laboratory results are unremarkable. The culture showed 1+ Gram-negative rods, sensitivity pending. He is currently receiving vancomycin, cefepime, and metronidazole, following recommendations from Infectious Disease. We are awaiting further recommendations from the surgery team and Infectious Disease. A detailed assessment and plan are discussed below. 04/17/25: The patient was examined today, accompanied by his at bedside. Today is s/p day 3 of incision and drainage of a perirectal abscess. He reports no complaints or concerns. Although he is slightly hypertensive with a systolic blood pressure in the 150s, his overall condition is unremarkable. Laboratory results from a CBC and BMP are unremarkable. However, his blood sugar level was 306 yesterday; according to his , this was due to having just completed a meal when the sugar was checked. His most recent blood sugar level is 160. Blood cultures on 04/12 showed gram-positive cocci, while a repeat blood culture on 04/14 showed no growth. The culture from the perirectal abscess on 04/14 revealed pansensitive Klebsiella pneumoniae. Based on consultation with the Infectious Disease provider, a blood culture was ordered today, and we will follow up once the results are available. We will continue administration of IV antibiotics, including metronidazole, vancomycin, and cefepime, and adhere to the recommendations from Infectious Disease for further management. REVIEW OF SYSTEMS CONSTITUTIONAL: Subjective fever at home, no chills, or night sweats. No unintentional weight loss reported. NEUROLOGICAL: Denies headache, amaurosis fugax, motor weakness, sensory deficit, vertigo/spinning sensation, gait abnormalities, or tremors. ENT: No hearing loss, otalgia, otorrhea, rhinitis, rhinorrhea, hoarseness, or sore throat. CARDIOVASCULAR: Denies any exertional angina, dyspnea on exertion, orthopnea, paroxysmal nocturnal dyspnea, palpitations, life-threatening arrhythmias, claudication. PULMONARY: Denies any shortness of breath, cough, phlegm/sputum, hemoptysis, pleuritic chest pain. SLEEP: Denies morning headaches, daytime somnolence or napping. Denies difficulty falling asleep, staying asleep, waking from sleep. Denies knowledge of snoring. GASTROINTESTINAL: Denies any type of dysphagia to either liquids or solids. Denies nausea, vomiting, pyrosis, early satiety, abdominal pain, diarrhea, constipation, or changes in stool consistency or caliber. Denies coffee-ground emesis, hematemesis, hematochezia, or melanotic stools. GENITOURINARY: Denies frequency, urgency, nocturia, hematuria or incontinence (Storage/Irritative symptoms.) Low urinary stream, straining to void, urinary intermittency or hesitancy, splitting of the voiding stream, terminal dribbling. ENDOCRINOLOGIC: Denies polyuria, polydipsia, polyphagia or heat/cold intolerances. HEMATOLOGIC: Denies thrombophilia/previous clots, or coagulopathy/bleeding disorders. ONCOLOGIC: Denies personal history of malignancy. DERMATOLOGIC: Denies rashes or pruritus. PSYCHIATRIC: Denies any suicidal or homicidal ideation. Denies hallucinations. PHYSICAL EXAM GENERAL APPEARANCE: The patient is awake, alert, and oriented, in no acute cardiopulmonary distress. NEUROLOGICAL: Cranial nerves II-XII grossly intact. Motor is 5/5 in bilateral upper and lower extremities proximal to distal. No sensory deficits. HEENT: Face is symmetric. Pupils are equal and reactive. Extraocular movements are intact. NECK: Supple. No JVD. No thyromegaly. No submental, submandibular, pre- /postauricular, occipital or supraclavicular lymphadenopathy. CHEST: Normal chest expansion. No Telemetry. LUNGS: Absence of any rales, rhonchi or any wheezing. CARDIOVASCULAR: Regular. S1 and S2 normal. No appreciable rubs, murmurs or gallops. ABDOMEN: Soft, nontender, and nondistended. There is no rebound, voluntary guarding, or rigidity. : open incision and drainage wound over left Ailyn rectal region, packing in placed, gluteal cleft rash was noted: Non-edematous and not cyanotic. No cl ubbing. Good capillary refill. SKIN: No skin breakdown. Vital Signs (last 8hr) Date Time Temp Pulse Resp B/P (MAP) Pulse Ox O2 Delivery O2 Flow Rate FiO2 04/17/25 12:28 97.9 70 18 149/88 94 Room Air 04/17/25 08:50 97.3 68 18 151/76 93 Room Air LABS: Laboratory: Test 04/17/25 11:30 04/17/25 06:03 04/16/25 18:40 Range/Units Whole Blood Glucose 174 H 70-110 MG/DL White Blood Count 10.5 4.8-10.8 K/uL Red Blood Count 4.43 L 4.50-6.20 MIL/uL Hemoglobin 12.9 L 14.0-18.0 g/dL Hematocrit 39.6 L 42-54 % Mean Corpuscular Volume 89.4 79-99 fL Mean Corpuscular Hemoglobin 29.1 27.0-33.0 pg Mean Corpuscular Hemoglobin Concent 32.6 32.0-36.0 g/dL Red Cell Distribution Width 12.6 11.0-15.5 % Platelet Count 220 130-400 K/uL Mean Platelet Volume 10.3 7.5-10.5 fL Immature Granulocyte % (Auto) 2.2 H 0-1 % Neutrophils (%) (Auto) 49.8 40.0-77.0 % Lymphocytes (%) (Auto) 33.7 21.0-51.0 % Monocytes (%) (Auto) 8.2 3.0-13.0 % Eosinophils (%) (Auto) 5.2 0.0-8.0 % Basophils (%) (Auto) 0.9 0.0-5.0 % Neutrophils # (Auto) 5.2 1.8-7.7 K/uL Lymphocytes # (Auto) 3.5 1.0-4.8 K/uL Monocytes # (Auto) 0.9 0.1-1.0 K/uL Eosinophils # (Auto) 0.54 0.00-0.70 K/uL Basophils # (Auto) 0.09 0.00-0.20 K/uL Absolute Immature Granulocyte (auto 0.23 0-1 K/uL Nucleated Red Blood Cells 0.0 0.0-0.19 % Sodium Level 138 136-145 mmol/L Potassium Level 4.0 3.5-5.1 mmol/L Chloride Level 104 101-111 mmol/L Carbon Dioxide Level 26 21-32 mmol/L Blood Urea Nitrogen 14 7-18 mg/dL Creatinine 0.7 0.5-1.3 mg/dL Glomerular Filtration Rate Calc 115 >90 mL/min Random Glucose 168 H 70-105 mg/dL Total Calcium 8.5 8.5-10.1 mg/dL Magnesium Level 2.00 1.80-2.40 mg/dL Vancomycin Level Trough 10.3 # 10.0-20.0 UG/ML Current Medications Medications (Trade) Dose Ordered Sig/Daria Route PRN Reason Start Time Stop Time Status Last Admin Dose Admin Acetaminophen (TYLenol 325MG TAB) 650 mg Q4H PRN PO MILD PAIN (1-3) 04/13/25 09:30 05/13/25 09:29 04/14/25 09:23 650 MG Acetaminophen (TYLenol 325MG TAB) 650 mg Q6H PRN PO TEMPERATURE GREATER THAN 101.5 04/13/25 09:30 05/13/25 09:29 Atorvastatin Calcium (LIPItor 20MG) 20 mg DAILY PO 04/14/25 09:00 04/16/25 07:07 DC 04/15/25 08:37 20 MG Atorvastatin Calcium (LIPItor 20MG) 20 mg HS PO 04/16/25 21:00 05/14/25 08:59 04/16/25 20:46 20 MG Cefepime HCl (MAXipime 1 GM vial) 1 gm Q8H IVPB 04/13/25 13:30 04/23/25 13:29 04/17/25 13:20 1 GM Ceftriaxone Sodium (Rocephin 2gm Inj) 2 gm Q24H IVPB 04/12/25 15:30 04/13/25 13:21 DC 04/12/25 16:41 2 GM Dextrose (D50w) 50 ml AD PRN IV HYPOGLYCEMIA PROTOCOL 04/12/25 15:30 05/12/25 15:29 Famotidine (Pepcid 20mg Tab) 20 mg BID PO 04/13/25 21:00 05/13/25 20:59 04/17/25 08:07 20 MG Glucagon (Glucagon 1mg Kit) 1 mg AD PRN IM HYPOGLYCEMIA PROTOCOL 04/12/25 15:30 05/12/25 15:29 Heparin Sodium (Porcine) (HEParin 5,000 UNIT VIAL) 5,000 unit Q12H SQ 04/15/25 09:00 05/15/25 08:59 04/17/25 08:10 5,000 UNIT Hydrochlorothiazide (hydroCHLOROthiazide 25MG) 25 mg DAILY PO 04/14/25 09:00 05/14/25 08:59 04/17/25 08:07 25 MG Hydromorphone HCl (DiLAUDid 0.5MG INJ) 0.5 mg Q4H PRN IV SEVERE PAIN (7-10) 04/16/25 07:30 04/18/25 09:29 Hydromorphone HCl (DiLAUDid 1MG INJ) 0.5 mg Q4H PRN IV SEVERE PAIN (7-10) 04/13/25 09:30 04/16/25 07:09 DC 04/15/25 12:31 0.5 MG Insulin Glargine (LANtus 100 UNITS/ML 10 ML VIAL) 10 units HS SQ 04/13/25 21:00 04/15/25 12:39 DC 04/14/25 22:12 10 UNITS Insulin Glargine (LANtus 100 UNITS/ML 10 ML VIAL) 15 units HS SQ 04/15/25 21:00 04/16/25 19:17 DC 04/15/25 20:55 15 UNITS Insulin Glargine (LANtus 100 UNITS/ML 10 ML VIAL) 20 units HS SQ 04/16/25 21:00 05/16/25 20:59 04/16/25 20:53 20 UNITS Insulin Human Regular (humuLIN R 100 UNIT/ML 3ML) INSULIN SLIDING SCAL... ACHS SQ 04/12/25 16:30 05/12/25 16:29 04/16/25 20:52 7 UNIT Losartan Potassium (CozAAR 100MG TAB) 100 mg DAILY PO 04/14/25 09:00 05/14/25 08:59 04/17/25 08:06 100 MG Magnesium Sulfate 50 ml @ 0 mls/hr PROTOCOL PRN IV MAGNESIUM PROTOCOL 04/12/25 15:30 05/12/25 15:29 Metronidazole/ Sodium Chloride 100 ml @ 100 mls/hr Q8H6 IVPB 04/12/25 18:00 04/22/25 17:59 04/17/25 13:20 100 MLS/HR Metronidazole/ Sodium Chloride 100 ml @ 100 mls/hr Q8H6 IVPB 04/12/25 22:00 04/12/25 17:32 DC Miscellaneous Medication (Valsartan/ Hydrochlorothiazide (Valsartan-Hctz 160-25 mg Tab)) 1 tab DAILY PO 04/14/25 09:00 04/13/25 09:23 DC Morphine Sulfate (morPHINE 2MG SYG) 2 mg Q4H PRN IV MODERATE PAIN (4-6) 04/13/25 09:30 04/20/25 09:29 04/14/25 22:13 2 MG Multi-Ingredient Ointment (Dr. Arellano'S Diaper) apply BID TP 04/15/25 21:00 05/15/25 20:59 04/17/25 08:11 1 APPL Potassium Chloride 100 ml @ 100 mls/hr AD PRN IV POTASSIUM PROTOCOL 04/12/25 15:30 05/12/25 15:29 Potassium Chloride (K-Dur/Klor-Con 20meq) 20 meq AD PRN PO POTASSIUM PROTOCOL 04/12/25 15:30 05/12/25 15:29 Potassium Chloride (KCl 10% Elixir 20meq/15ml) 20 meq AD PRN PO POTASSIUM PROTOCOL 04/12/25 15:30 05/12/25 15:29 Vancomycin HCl 250 ml @ 125 mls/hr Q12H IV 04/13/25 16:00 04/15/25 15:22 DC 04/15/25 04:36 125 MLS/HR Vancomycin HCl 250 ml @ 125 mls/hr Q8H IV 04/15/25 15:30 04/16/25 07:07 DC 04/16/25 06:20 125 MLS/HR Vancomycin HCl 500 ml @ 250 mls/hr Q12H IV 04/16/25 19:30 04/26/25 19:29 04/17/25 06:03 250 MLS/HR Vancomycin HCl (Vancomycin Protocol) 1 each AD IV 04/13/25 13:30 04/27/25 13:29 DIAGNOSTICS / RADIOLOGY: [place] [address] [id number] IMAGING REPORT Signed PATIENT: TESS VELASQUEZ MR#: [id number] : 1980 SEX: M AGE: 44 LOCATION: [facility] ORDER 1323 STATUS: [facility] REPORT#: [id number] SERVICE 132 REASON: perirectal abscess ORDERING PHYSICIAN: SHAMAR SERRANO PROCEDURE: PELVIS W - CT PELVIS W/CONTRAST Exam Type: CT pelvis with contrast Clinical Information: perirectal abscess Technique: Routine helical scanning at 5mm collimation through the abdomen and pelvis was performed. Sagittal and coronal reformations were also done. Findings: Left posterior perirectal well-circumscribed abscess measuring 3.1 cm. The visualized pelvic bowel loops are unremarkable. No free fluid or fluid collections of the pelvis are seen otherwise. The pelvic viscera are normal in CT appearance. The perirectal fat planes are clear. Bilateral chronic pars interarticularis fractures at L5 with grade 1 anterolisthesis. IMPRESSION: Left posterior perirectal well-circumscribed abscess measuring 3.1 cm. DICTATED BY: JUANI LEE MD DATE: 04/12/251419 ELECTRONICALLY SIGNED BY: JUANI LEE MD DATE: 04/12/251423 RUN DATE: 04/14/25 [facility] PAGE 1 RUN TIME: [address] [address] Department of Laboratories [facility] # [id number] [employer]: Nick Silva DO Specimen Report PATIENT: TESS VELASQUEZ ACCT: [id number] LOC: [facility] U: [id number] AGE/SX: 44/M ROOM: 312 RE04/12/[address]: NIK LAWSON MD : 1980 BED: 1 DIS: STATUS: ADM IN TLOC: SPEC: [id number] FELIPE: 04/12/25-1344 STATUS: RES REQ: [id number] RECD: 04/12/25-[address]: SHAMAR SERRANO SOURCE: BLOOD ENTR: 04/12/25-1324 [facility] DR: NONE SPDESC: JOSE MCGHEE MD ORDERED: BLOOD CULTURE COMMENTS: What is the Source? BLOOD Procedure Result Lala Date-Time - BLOOD CULT Preliminary 04/14/25-2151 GRAM STAIN: GRAM POSITIVE COCCI SET 1 OF 2 ANAEROBIC BOTTLE CALLED NURSE GAEL 2900 CULTURE REPORT: IDENTIFICATION AND SUSCEPTIBILITIES TO FOLLOW FOR CULTURE RESULTS [id number] [facility] RE[facility] RUN DATE: 04/17/25 [facility] PAGE 1 RUN TIME: [address]223 [address] [address], [place] [address] Department of [employer] CLIA # [id number] [employer]: Nick Silva DO Specimen Report PATIENT: TESS VELASQUEZ ACCT: [id number] LOC: [facility] U: [id number] AGE/SX: 44/M ROOM: 312 RE04/12/[address]: NIK LAWSON MD : 1980 BED: 1 DIS: STATUS: ADM IN TLOC: SPEC: [id number] FELIPE: 04/14/25 STATUS: RES REQ: [id number] RECD: 04/14/[address]: LUCY HUMMEL MD SOURCE: PERIRECTAL ENTR: 04/14/[address]: ADWOA HOWE MD SPDESC: ABSCESS NIK LAWSON MD, JESUS MD ORDERED: MIGUEL CULTURE, AEROBIC CULTURE COMMENTS: Has specimen been collected/obtained? Y Specimen Comment: PERIANAL ABSCES Specimen Comment: PERIANAL ABSCESS Has specimen been collected/obtained? Y Specimen Comment: PERIANAL ABSCES Specimen Comment: PERIANAL ABSCESS Has specimen been collected/obtained? Y Specimen Comment: PERIANAL ABSCES Specimen Comment: PERIANAL ABSCESS Has specimen been collected/obtained? Y Specimen Comment: PERIANAL ABSCES Specimen Comment: PERIANAL ABSCESS Has specimen been collected/obtained? Y Specimen Comment: PERIANAL ABSCES Specimen Comment: PERIANAL ABSCESS Has specimen been collected/obtained? Y Specimen Comment: PERIANAL ABSCES Specimen Comment: PERIANAL ABSCESS Has specimen been collected/obtained? Y Specimen Comment: PERIANAL ABSCES Specimen Comment: PERIANAL ABSCESS Has specimen been collected/obtained? Y Specimen Comment: PERIANAL ABSCES Specimen Comment: PERIANAL ABSCESS Has specimen been collected/obtained? Y Specimen Comment: PERIANAL ABSCES Specimen Comment: PERIANAL ABSCESS Has specimen been collected/obtained? Y Specimen Comment: PERIANAL ABSCES Specimen Comment: PERIANAL ABSCESS Has specimen been collected/obtained? Y Specimen Comment: PERIANAL ABSCES Specimen Comment: PERIANAL ABSCESS Has specimen been collected/obtained? Y Specimen Comment: PERIANAL ABSCES Specimen Comment: PERIANAL ABSCESS Has specimen been collected/obtained? Y Specimen Comment: PERIANAL ABSCES Specimen Comment: PERIANAL ABSCESS CONTINUED ON NEXT PAGE RUN DATE: 04/17/25 [facility] PAGE 2 RUN TIME: [address] [id number] Department of Laboratories [place] # [id number] [employer]: Nick Silva DO Specimen Report SPEC: [id number] PATIENT: TESS VELASQUEZ [id number] (Continued) Procedure Result Lala Date-Time ANAEROBIC CULTURE Preliminary 04/17/25-1022 [facility] COLONY DESCRIPTION: REPORT 1: NO ANAEROBES AT 16-23 HOURS; STUDIES TO CONTINUE REPORT 2: NO ANAEROBES AT 36-47 HOURS; STUDIES TO CONTINUE Test(s) performed by: [facility] [address] [place] [address] AEROBIC CULTURE Preliminary 04/17/25-1022 [facility] DESCRIPTION: REPORT 1: 1+ GRAM NEGATIVE RODS IDENTIFICATION AND SENSITIVITY TO FOLLOW REPORT 2: STUDIES TO CONTINUE KLEBSIELLA PNEUMONIAE K PNEUMO M.I.C. RX --------- ---- AZTREONAM <=4 S CEFAZOLIN <=2 S CEFTAZIDIME/AVIBACTAM <=8 S GENTAMICIN <=2 S LEVOFLOXACIN <=0.5 S AMPICILLIN/SULBACTAM <=8/4 S MEROPENEM <=1 S PIPERACILLIN/TAZOBACTAM <=8 S TRIMETHOPRIM/SUFLAMETHOXAZOLE <=2/38 S --------- --- @ [facility] Test Performed at: [facility] [address], [place], [place] Medical Form Setter/Driver: Elliott Romero D.O. END OF REPORT RUN DATE: 04/17/25 [facility] PAGE 1 RUN TIME: [address] [address] Department of Laboratories CLIA # [id number] [employer]: Nick Silva DO Specimen Report PATIENT: TESS VELASQUEZ ACCT: [id number] LOC: [facility] U: [id number] AGE/SX: 44/M ROOM: 312 RE04/12/[address]: NIK LAWSON MD : 1980 BED: 1 DIS: STATUS: ADM IN TLOC: SPEC: [id number] FELIPE: 04/14/25 STATUS: RES REQ: [id number] RECD: 04/14/[address]: LUCY HUMMEL MD SOURCE: OTHER SOUR ENTR: 04/14/[address]: ADWOA HOWE MD SPDESC: OTHER NIK LAWSON MD, JESUS MD ORDERED: AEROBIC CULTURE COMMENTS: Has specimen been collected/obtained? Y Specimen Comment: NECROTIC TISSUE FOR CULTURE Has specimen been collected/obtained? Y Specimen Comment: NECROTIC TISSUE FOR CULTURE Has specimen been collected/obtained? Y Specimen Comment: NECROTIC TISSUE FOR CULTURE Procedure Result Lala Date-Time ----- ------- AEROBIC CULTURE Preliminary 04/17/25-1025 [facility] DESCRIPTION: REPORT 1: NO GROWTH AT 16-23 HOURS; STUDIES TO CONTINUE REPORT 2: 1+ GRAM NEGATIVE RODS IDENTIFICATION AND SENSITIVITY TO FOLLOW Test(s) performed by: [facility] [address] [place] [address] @ [facility] Test Performed at: [facility] [address] [place], [place] Medical Form Setter/Driver: Elliott Romero D.O. RUN DATE: 04/16/25 [facility] PAGE 1 RUN TIME: [address] [address], [place] [address] Department of Laboratories [facility] # [id number] [employer]: Nick Silva DO Specimen Report PATIENT: TESS VELASQUEZ ACCT: [id number] LOC: [facility] U: [id number] AGE/SX: 44/M ROOM: [facility] RE04/12/[address]: NIK LAWSON MD : 1980 BED: 1 DIS: STATUS: ADM IN TLOC: SPEC: [id number] FELIPE: 04/14/25 STATUS: RES REQ: [id number] RECD: 04/14/[address]: SHAMAR SERRANO SOURCE: BLOOD ENTR: 04/14/[address]: NONE SPDESC: BLOOD JOSE MCGHEE MD ORDERED: AERO ID & SENS Procedure Result Lala Date-Time AEROBIC ID & SENSITIVITIES Preliminary 04/16/25-1333 [facility] DAY 1: NO GROWTH Test(s) performed by: [facility] [address] [place] [address] @ [facility] Test Performed at: [facility] [address], [place], [place] Medical Form Setter/Driver: Elliott Romero D.O. ASSESSMENT: Left perirectal abscess measuring 3.1 cm, s/p I & D, cultures + pansensitive Klebsiella pneumoniae on 04/14/25 POA Elevated inflammatory markers, ESR, CRP POA Hyperglycemia with uncontrolled type 2 diabetes mellitus A1c 10.7%, POA Hypertension, POA Hypoalbuminemia, POA Hyperlipidemia, POA PLAN: The patient remains admitted on the medical surgical floor. Left perirectal abscess measuring 3.1 cm, s/p I & D, cultures + pansensitive K lebsiella pneumoniae on 04/14/25 POA Elevated inflammatory markers, ESR, CRP POA * Incision and drainage was done by Dr. Mejía on 04/14/25. Wound cultures showed pansensitive Klebsiella pneumoniae. Continue with broad-spectrum IV antibiotics cefepime, vancomycin, and metronidazole. * Blood culture on 04/12 showed Gram-positive cocci however, Preliminary Blood Culture on 04/14 showed no growth. * Follow Infectious Disease recommendations. * Monitor for fever. Hyperglycemia with uncontrolled type 2 diabetes mellitus A1c 10.7%, POA * Continue insulin Lantus to 20 units HS. * A.c. and HS glucometer and insulin sliding scale * The patient was educated on strict adherence to carbohydrate restricted diet. Hypertension, POA * Continue with losartan 100 mg daily. * Continue with hydrochlorothiazide 25 mg daily. Hyperlipidemia, POA * Continue with atorvastatin 20 mg p.o. daily. DVT prophylaxis: Heparin 5000 IU q.12h. GI prophylaxis: Famotidine 20 mg p.o. b.i.d. P.r.n. medications * Hydromorphone 0.5 mg q.4 for severe pain (7-10) * Morphine 2 mg q.4 for moderate pain (4-6) * Tylenol 650 mg q.4 for mild pain (1-4) * Tylenol 650 mg for fever Follow up with the blood culture results when available. Follow up with the Infectious Disease recommendations. A.m. labs, CBC, BMP Assessment and plan was discussed in detail and the patient. The patient verbalizes understanding. Further orders per hospitalization course. ATTESTATION BY PHYSICIAN I have seen and examined the patient. I reviewed the documentation, medical decision making, and treatment plan as noted by the resident provider above. I agree with the findings and plan of care. Hamilton Guerra MD, MANALI MD Apr 17, 2025 13:38
[2025-04-18 00:43] VITALS: BP 138/71; PULSE 72; RESP 18; TEMP 98
[2025-04-18 04:19] VITALS: BP 141/63; PULSE 73; RESP 19; TEMP 98.4
[2025-04-18 08:00] VITALS: BP 126/66; PULSE 90; RESP 19; TEMP 97.8
[2025-04-18 12:00] VITALS: BP 148/73; PULSE 82; RESP 19; TEMP 98
--- NOTE | 2025-04-18 14:46 | DS ---
Discharge Summary Exposure Machine Operator(s): Dr. Hammad Denton, Infectious disease Procedure(s): [facility] [address] [id number] IMAGING REPORT Signed PATIENT: TESS VELASQUEZ MR#: [id number] : 1980 SEX: M AGE: 44 LOCATION: [facility] ORDER 1323 STATUS: [facility] REPORT#: [id number] SERVICE 132 REASON: perirectal abscess ORDERING PHYSICIAN: SHAMAR SERRANO PROCEDURE: PELVIS W - CT PELVIS W/CONTRAST Exam Type: CT pelvis with contrast Clinical Information: perirectal abscess Technique: Routine helical scanning at 5mm collimation through the abdomen and pelvis was performed. Sagittal and coronal reformations were also done. Findings: Left posterior perirectal well-circumscribed abscess measuring 3.1 cm. The visualized pelvic bowel loops are unremarkable. No free fluid or fluid collections of the pelvis are seen otherwise. The pelvic viscera are normal in CT appearance. The perirectal fat planes are clear. Bilateral chronic pars interarticularis fractures at L5 with grade 1 anterolisthesis. IMPRESSION: Left posterior perirectal well-circumscribed abscess measuring 3.1 cm. DICTATED BY: JUANI LEE MD DATE: 04/12/251419 ELECTRONICALLY SIGNED BY: JUANI LEE MD DATE: 04/12/251423 RUN DATE: 04/17/25 [facility] PAGE 1 RUN TIME: [address] [address] Department of Laboratories [facility] # [id number] Ordering Machine Operator: Nick Silva DO Specimen Report - PATIENT: TESS VELASQUEZ ACCT: [id number] LOC: U: [id number] AGE/SX: 44/M ROOM: 312 RE04/12/[address]: NIK LAWSON MD : 1980 BED: 1 DIS: STATUS: ADM IN TLOC: SPEC: [id number] FELIPE: 04/12/25 STATUS: COMP REQ: [id number] RECD: 04/12/[address]: SHAMAR SERRANO SOURCE: BLOOD ENTR: 04/12/[address]: NONE SPDESC: JOSE MCGHEE MD ORDERED: BLOOD CULTURE COMMENTS: What is the Source? BLOOD Procedure Result Lala Date-Time BLOOD CULT Final 04/17/25-1333 NO GROWTH AFTER 5 DAYS RUN DATE: 04/18/25 [facility] PAGE 3 RUN TIME: 7901 [address] [address], [place] [address] Department of [facility] CLIA # [id number] Ordering Machine Operator: Nick Silva DO Specimen Report SPEC: [id number] PATIENT: EVAGERMANO [id number] (Continued) --------- --- Procedure Result Lala Date-Time AEROBIC CULTURE Final (continued) 04/18/25-1046 E COLI K PNEUMO M.I.C. RX M.I.C. RX --------- ---- --------- ---- AMPICILLIN >16 R AZTREONAM <=4 S <=4 S CEFAZOLIN <=2 S <=2 S CEFTAZIDIME/AVIBACTAM <=8 S <=8 S GENTAMICIN >8 R <=2 S LEVOFLOXACIN <=0.5 S <=0.5 S TOBRAMYCIN 8 R AMPICILLIN/SULBACTAM 16/8 I <=8/4 S MEROPENEM <=1 S <=1 S PIPERACILLIN/TAZOBACTAM <=8 S <=8 S TRIMETHOPRIM/SUFLAMETHOXAZOLE >2/38 R <=2/38 S @ [facility] Test Performed at: [facility] [address], [place], [place] Medical Booth Manager: Elliott Romero D.O. RUN DATE: 04/18/25 [facility] PAGE 1 RUN TIME: 9858 [address] [address], [place] [address] Department of Laboratories [facility] # [id number] Ordering Machine Operator: Nick Silva DO Specimen Report PATIENT: DEBORAHTESS Castillo ACCT: [id number] LOC: [facility] U: [id number] AGE/SX: 44/M ROOM: 312 RE04/12/[address]: NIK LAWSON MD : 1980 BED: 1 DIS: STATUS: ADM IN TLOC: SPEC: [id number] FELIPE: 04/14/25 STATUS: RES REQ: [id number] RECD: 04/14/[address]: SHAMAR SERRANO SOURCE: BLOOD ENTR: 04/14/[address]: NONE SPDESC: BLOOD JOSE MCGHEE MD ORDERED: AERO ID & SENS Procedure Result Lala Date-Time ------ ------ AEROBIC ID & SENSITIVITIES Preliminary 04/18/25-0 MRL DAY 1: NO GROWTH DAY 2: NO GROWTH DAY 3: NO GROWTH Test(s) performed by: [facility] [address] [place] [address] @ [facility] Test Performed at: [facility] [address], [place], [place] Medical Booth Manager: Elliott Romero D.O. RUN DATE: 04/18/25 [facility] PAGE 1 RUN TIME: [address] [address] Department of Laboratories CLIA # [id number] Ordering Machine Operator: Nick Silva DO Specimen Report PATIENT: TESS VELASQUEZ ACCT: [id number] LOC: [facility] U: [id number] AGE/SX: 44/M ROOM: [facility] RE04/12/[address]: NIK LAWSON MD : 1980 BED: 1 DIS: STATUS: ADM IN TLOC: SPEC: [id number] FELIPE: 04/17/25 STATUS: RES REQ: [id number] RECD: 04/17/[address]: HAMMAD HOWE MD SOURCE: BLOOD ENTR: 04/17/25-[address]: LUCY HUMMEL MD [facility]: NIK LAWSON MD, JESUS MD ORDERED: BLOOD CULTURE COMMENTS: What is the Source? BLOOD Procedure Result Lala Date-Time BLOOD CULT Preliminary 04/18/25-1319 NO GROWTH AFTER 24 HOURS Assessment/Plan: ASSESSMENT: Left perirectal abscess measuring 3.1 cm, s/p I & D, cultures + pansensitive Klebsiella pneumoniae on 04/14/25 POA Elevated inflammatory markers, ESR, CRP POA Hyperglycemia with uncontrolled type 2 diabetes mellitus A1c 10.7%, POA Hypertension, POA Hypoalbuminemia, POA Hyperlipidemia, POA PLAN: The patient remains admitted on the medical surgical floor. Left perirectal abscess measuring 3.1 cm, s/p I & D, cultures + pansensitive Klebsiella pneumoniae on 04/14/25 POA Elevated inflammatory markers, ESR, CRP POA * Incision and drainage was done by Dr. Mejía on 04/14/25. Wound cultures showed pansensitive Klebsiella pneumoniae. Continue with broad-spectrum IV antibiotics cefepime, vancomycin, and metronidazole. * Blood culture on 04/12 showed Gram-positive cocci however, Preliminary Blood Culture on 04/14 showed no growth. * Follow Infectious Disease recommendations. * Monitor for fever. Hyperglycemia with uncontrolled type 2 diabetes mellitus A1c 10.7%, POA * Continue insulin Lantus to 20 units HS. * A.c. and HS glucometer and insulin sliding scale * The patient was educated on strict adherence to carbohydrate restricted diet. Hypertension, POA * Continue with losartan 100 mg daily. * Continue with hydrochlorothiazide 25 mg daily. Hyperlipidemia, POA * Continue with atorvastatin 20 mg p.o. daily. DVT prophylaxis: Heparin 5000 IU q.12h. GI prophylaxis: Famotidine 20 mg p.o. b.i.d. P.r.n. medications * Hydromorphone 0.5 mg q.4 for severe pain (7-10) * Morphine 2 mg q.4 for moderate pain (4-6) * Tylenol 650 mg q.4 for mild pain (1-4) * Tylenol 650 mg for fever Follow up with the blood culture results when available. Follow up with the Infectious Disease recommendations. A.m. labs, CBC, BMP Assessment and plan was discussed in detail and the patient. The patient verbalizes understanding. Further orders per hospitalization course. Home Medications: Active Scripts Levofloxacin (Levaquin 750Mg Tabs) 750 Mg Tablet, 750 MG PO DAILY, #10 TAB Prov:AUTUMN LEGER MD 08/29/23 Ibuprofen (Motrin/Advil) 800 Mg Tab, 800 MG PO TID, #30 TAB Prov:AUTUMN LEGER MD 08/29/23 Reported Medications Tirzepatide (Mounjaro) 7.5 Mg/0.5 Ml Pen.injctr, 7.5 MG SQ QWEEK 04/12/25 Valsartan/Hydrochlorothiazide (Valsartan-Hctz 160-25 mg Tab) 160 Mg-25 Mg Tablet, 1 TAB PO DAILY for 30 Days, #30 TAB 0 Refills 04/12/25 Atorvastatin Calcium (Atorvastatin Calcium) 20 Mg Tablet, 1 TAB PO DAILY for 30 Days, #30 TAB 0 Refills 04/12/25 Metformin HCl (Metformin HCl) 1,000 Mg Tablet, 1 TAB PO BID for 30 Days, #60 TAB 0 Refills 04/12/25 Continued Medications: Atorvastatin Calcium (Atorvastatin Calcium) 20 Mg Tablet 1 TAB PO DAILY for 30 Days, #30 TAB 0 Refills Ibuprofen (Motrin/Advil) 800 Mg Tab 800 MG PO TID, #30 TAB Metformin HCl (Metformin HCl) 1,000 Mg Tablet 1 TAB PO BID for 30 Days, #60 TAB 0 Refills Tirzepatide (Mounjaro) 7.5 Mg/0.5 Ml Pen.injctr 7.5 MG SQ QWEEK Valsartan/Hydrochlorothiazide (Valsartan-Hctz 160-25 mg Tab) 160 Mg-25 Mg Tablet 1 TAB PO DAILY for 30 Days, #30 TAB 0 Refills Discontinued Medications: Levofloxacin (Levaquin 750Mg Tabs) 750 Mg Tablet 750 MG PO DAILY, #10 TAB Time spent arranging discharge: 31-60 minutes ATTESTATION BY PHYSICIAN I have seen and examined the patient. I reviewed the documentation, medical decision making, and treatment plan as noted by the resident provider above. I agree with the findings and plan of care. Hamilton Guerra MD, MANALI MD Apr 18, 2025 14:46
[2025-04-18 16:00] VITALS: BP 141/70; PULSE 73; RESP 19; TEMP 97.9
--- NOTE | 2025-04-18 16:15 | PN ---
INFECTIOUS DISEASE PROGRESS NOTE Date of Service: Apr 18, 2025 SUBJECTIVE: This is a 44 year old male patient who was seen and examined at bedside in room 312. No growth reported on the blood culture collected yesterday nor the one collected on 04/14/2025. The Gram-positive blood culture collected on 04/12/2025 was possible a contaminant. Patient is status post incision and drainage of perirectal abscess on 04/14/2025 and the perirectal wound cultures results came back positive for Klebsiella pneumoniae. From Infectious Disease standpoint patient can be discharge on Ceftin 500 b.i.d. x 10 days. Prescription was written. PHYSICAL EXAM EYES: Anicteric. Pupils equal and reactive. HENT: No oral thrush seen, moist Oral mucosa NECK: Supple, no JVD or thyromegaly. LUNGS: Good air entry. No rales, no rhonchi. CARDIOVASCULAR: S1, S2 regular. No murmur heard. ABDOMEN: Soft, non tender, bowel sounds present, no organomegaly. CENTRAL NERVOUS SYSTEM: Awake, alert, oriented x 3. SKIN: No rashes, no swelling. LYMPHATICS: No peripheral lymphadenopathy MUSCULOSKELETAL: No joint swelling, erythema or tenderness. EXTREMITIES: No cyanosis or clubbing BACK: No deformity, no pressure ulcer. GENITOURINARY: Perirectal surgical wound. Vital Sign (Last 12 Hours) 04/18/25 04/18/25 04/18/25 04:19 08:00 12:00 Temp 98.4 97.9 98.1 Pulse 73 90 82 Resp 19 19 19 B/P (MAP) 141/63 126/66 148/73 Pulse Ox 95 97 95 O2 Delivery Room Air Room Air Room Air FiO2 21 21 Intake & Output (last 24hrs) 04/17/25 04/17/25 04/18/25 14:59 22:59 06:59 Intake Total 480 ml 240 ml Balance 480 ml 240 ml LABS: Laboratory: Test 04/18/25 11:27 04/17/25 06:03 04/16/25 18:40 Range/Units Whole Blood Glucose 149 H 70-110 MG/DL Bedside Glucose Comment Notified Nurse White Blood Count 10.5 4.8-10.8 K/uL Red Blood Count 4.43 L 4.50-6.20 MIL/uL Hemoglobin 12.9 L 14.0-18.0 g/dL Hematocrit 39.6 L 42-54 % Mean Corpuscular Volume 89.4 79-99 fL Mean Corpuscular Hemoglobin 29.1 27.0-33.0 pg Mean Corpuscular Hemoglobin Concent 32.6 32.0-36.0 g/dL Red Cell Distribution Width 12.6 11.0-15.5 % Platelet Count 220 130-400 K/uL Mean Platelet Volume 10.3 7.5-10.5 fL Immature Granulocyte % (Auto) 2.2 H 0-1 % Neutrophils (%) (Auto) 49.8 40.0-77.0 % Lymphocytes (%) (Auto) 33.7 21.0-51.0 % Monocytes (%) (Auto) 8.2 3.0-13.0 % Eosinophils (%) (Auto) 5.2 0.0-8.0 % Basophils (%) (Auto) 0.9 0.0-5.0 % Neutrophils # (Auto) 5.2 1.8-7.7 K/uL Lymphocytes # (Auto) 3.5 1.0-4.8 K/uL Monocytes # (Auto) 0.9 0.1-1.0 K/uL Eosinophils # (Auto) 0.54 0.00-0.70 K/uL Basophils # (Auto) 0.09 0.00-0.20 K/uL Absolute Immature Granulocyte (auto 0.23 0-1 K/uL Nucleated Red Blood Cells 0.0 0.0-0.19 % Sodium Level 138 136-145 mmol/L Potassium Level 4.0 3.5-5.1 mmol/L Chloride Level 104 101-111 mmol/L Carbon Dioxide Level 26 21-32 mmol/L Blood Urea Nitrogen 14 7-18 mg/dL Creatinine 0.7 0.5-1.3 mg/dL Glomerular Filtration Rate Calc 115 >90 mL/min Random Glucose 168 H 70-105 mg/dL Total Calcium 8.5 8.5-10.1 mg/dL Magnesium Level 2.00 1.80-2.40 mg/dL Vancomycin Level Trough 10.3 # 10.0-20.0 UG/ML DIAGNOSIS /RADIOLOGY: SPEC: [id number] PATIENT: TESS VELASQUEZ [id number] (Continued) ------ ------ Procedure Result Lala Date-Time ANAEROBIC CULTURE Preliminary 04/17/25-1022 MRL COLONY DESCRIPTION: REPORT 1: NO ANAEROBES AT 16-23 HOURS; STUDIES TO CONTINUE REPORT 2: NO ANAEROBES AT 36-47 HOURS; STUDIES TO CONTINUE Test(s) performed by: [facility] [address] [place] [address] AEROBIC CULTURE Preliminary 04/17/25-1022 MRL COLONY DESCRIPTION: REPORT 1: 1+ GRAM NEGATIVE RODS IDENTIFICATION AND SENSITIVITY TO FOLLOW REPORT 2: STUDIES TO CONTINUE KLEBSIELLA PNEUMONIAE K PNEUMO M.I.C. RX --------- ---- AZTREONAM <=4 S CEFAZOLIN <=2 S CEFTAZIDIME/AVIBACTAM <=8 S GENTAMICIN <=2 S LEVOFLOXACIN <=0.5 S AMPICILLIN/SULBACTAM <=8/4 S MEROPENEM <=1 S PIPERACILLIN/TAZOBACTAM <=8 S TRIMETHOPRIM/SUFLAMETHOXAZOLE <=2/38 S ASSESSMENT: Ailyn rectal abscess status post incision and drainage and debridement on 04/14/2025. Gram-positive bacteremia, possible contaminant. Diabetes mellitus. Obesity. PLAN: From Infectious Disease standpoint patient can be discharge on Ceftin 500 b.i.d. x 10 days. Prescription was written. This case was reviewed and discussed with my supervising physician and the above assessment and plan was formulated and agreed upon. ATTESTATION BY PHYSICIAN I have seen and examined the patient. I reviewed the documentation, medical decision making, and treatment plan as noted by the mid-level provider above. I agree with the findings and plan of care. ADWOA HOWE MD, MIRTA L [facility] Apr 18, 2025 16:15
== END 2025-04-18 18:50 | disposition home or self-care (01) | DRG 357 ==
LOC: EDH 12:55 → EDHIP 12:56 → OBSVTOIN 12:56 → UNDOADMIN 15:09 → EDHIP 15:09 → 3BH 22:17
PROVIDERS: ADMIT Internal Medicine; ATTEND Internal Medicine
PROC: 0JBB0ZZ Excision of Perineum Subcutaneous Tissue and Fascia, Open Approach (ICD-10-PCS; principal; 2025-04-14 07:58)
DX: K61.1 Rectal abscess (principal); L02.215 Cutaneous abscess of perineum; L02.31 Cutaneous abscess of buttock; R78.81 Bacteremia; K61.4 Intrasphincteric abscess; I10 Essential (primary) hypertension; E88.09 Other disorders of plasma-protein metabolism, not elsewhere classified; E66.9 Obesity, unspecified; E11.65 Type 2 diabetes mellitus with hyperglycemia; B96.89 Other specified bacterial agents as the cause of diseases classified elsewhere; B96.1 Klebsiella pneumoniae [K. pneumoniae] as the cause of diseases classified elsewhere; E78.5 Hyperlipidemia, unspecified; Z83.3 Family history of diabetes mellitus
CPT/HCPCS: 36415; 72193; 80048; 80053; 80202; 82948; 83036; 83735; 85025; 85651; 86140; 87040; 87070; 87076; 87086; 87186; 96374; 99285; G0378; J0330; J0692; J0696; J1171; J1644; J1815; J1885; J2250; J2270; J2405; J2704; J2710; J3010; J3370; J3490; J7030; Q9967; A4649; A4930; J0665